=== PATIENT | male | born 1945 | race Caucasian/White ===

== ENCOUNTER 2016-08-22 21:38 | Emergency (ER) | payer MEDICARE, OTHER ==
[2016-08-22] MEDS ORDERED: NORCO, ANEXSIA 5/325MG TABLET (HYDROcodone/ACETAMINOPHEN) As Ordered ONE (23:01)
[2016-08-22] MEDS ORDERED: tiZANidine 4 MG TAB As Ordered ONE (23:02)
[2016-08-22 23:09] LABS: BASO # 0.1 K/mm3 (0.0-0.2); BASO % 1.1 % (0.0-1.0); EOS # 0.3 K/mm3 (0.0-0.50); EOS % 3.6 % (0.0-3.0); LARGE UNSTAINED CELL # 0.1 K/mm3 (0.0-0.4); LARGE UNSTAINED CELL % 1.4 % (0.0-4.0); LYMPH # 0.9 K/mm3 (1.5-4.5); LYMPH % 9.3 % (24.0-44.0); MEAN CORPUSCULAR HGB CONC 32.7 g/dl (32.0-36.5); MEAN CORPUSCULAR VOLUME 85.7 fl (80.0-96.0); MONO # 0.7 K/mm3 (0.0-0.8); MONO % 7.4 % (0.0-5.0); NEUTROPHILS # 6.8 K/mm3 (1.8-7.7); NEUTROPHILS % 77.1 % (36.0-66.0); PLATELET COUNT, AUTOMATED 149 k/mm3 (150-450); RED CELL DISTRIBUTION WIDTH 14.3 % (11.5-14.5); WHITE BLOOD COUNT 8.8 K/mm3 (4.0-10.0)
[2016-08-22 23:32] LABS: ALBUMIN 4.1 GM/DL (3.2-5.2); ALBUMIN/GLOBULIN RATIO 1.24 (1.00-1.93); ALKALINE PHOSPHATASE 107 U/L (45-117); ALT/SGPT 37 U/L (12-78); ANION GAP 7 MEQ/L (8-16); AST/SGOT 26 U/L (15-37); BLOOD UREA NITROGEN 19 MG/DL (7-18); CALCIUM LEVEL 8.6 MG/DL (8.8-10.2); CARBON DIOXIDE LEVEL 26 MEQ/L (21-32); CHLORIDE LEVEL 106 MEQ/L (98-107); CREATININE FOR GFR 1.16 MG/DL (0.70-1.30); GLOMERULAR FILTRATION RATE > 60.0 (>42); GLUCOSE, FASTING 149 MG/DL (83-110); POTASSIUM SERUM 3.9 MEQ/L (3.5-5.1); SODIUM LEVEL 139 MEQ/L (136-145); TOTAL PROTEIN 7.4 GM/DL (6.4-8.2)
--- NOTE | 2016-08-23 00:53 | EDDOCDS ---
Nurse's Notes [facility] Name: Fred Moseley Age: 71 yrs Sex: Male : 1945 Arrival Date: 08/22/2016 Time: 21:38 Bed 17 Private MD: Jaun Jennings Diagnosis: Myositis Presentation: 08/22 21:42 Presenting complaint: EMS states: chronic back problems. Bilat shoulder pain, numbness, ttb tingling today. Adult Sepsis Screening:. Suicide/Homicide risk assessment- the patient denies having any suicidal and/or homicidal ideations and does not present with any other emotional, behavioral or mental health complaints. 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 Transition of care: patient was not received from another setting of care. 21:42 Acuity: KYLE Level 3 ttb 21:42 Method Of Arrival: Ambulance ttb 21:53 Adult Sepsis Screening: The patient does not have new or worsening altered mentation. ttb Patient's respiratory rate is less than 22. Systolic blood pressure is greater than 100. Patient has a qSOFA score of 0- Negative Sepsis Screen. Triage Assessment: 21:55 General: Appears in no apparent distress, comfortable, well nourished, well groomed, ttb Behavior is appropriate for age, cooperative, pleasant. Pain: Location: bilat shoulders, righ knee. Pain currently is 8 out of 10 on a pain scale. 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 Denies blurred vision dizziness, headache Reports numbness. EENT: Reports nasal discharge. Cardiovascular: Heart tones Murmur present Chest pain is denied. Respiratory: No deficits noted. Airway is patent Respiratory effort is even, unlabored, Respiratory pattern is regular, symmetrical, Breath sounds are clear bilaterally. Denies cough, shortness of breath. GI: Denies nausea, vomiting, pain. Derm: Skin is normal. Musculoskeletal: Range of motion limited in bilat shoulders d/t weakness/pain No deformity noted Reports pain in bilat shoulders, neck, mid back, right knee. Injury Description: pt states he was doing yard work recently, no injury, fall a couple weeks ago which he states was unremarkable, and a lot of shopping today. Historical: - Allergies: unknown medication; - Home Meds: 1. Lipitor Oral 2. Lisinopril Oral Unknown once daily (Last dose: 08/21/2016) 3. Toprol XL Unknown Oral Unknown once daily (Last dose: 08/22/2016 08:00) 4. Tylenol #3 Oral Unknown from old rx - med 3 years old... (Last dose: 08/22/2016 18:00) 5. naproxen 500 mg Oral tab every 12 hours (Last dose: 08/22/2016 17:30) - PMHx: GERD; Heart Murmur; Hypertension; cardiac stent; Arthritis; Chronic Back pain; - PSHx: left hip arthroplasty; ankle fusion; Cardiac stents; - Social history: Smoking status: Patient states former smoker of tobacco. Patient uses alcohol only on a social basis. Patient/guardian denies using street drugs, No barriers to communication noted, The patient speaks fluent Egyptian, Speaks appropriately for age. - Family history: Not pertinent. - : The pt / caregiver states he / she is not on anticoagulants. Home medication list is obtained from the patient. - Exposure Risk Screening:: None identified. Screenin:00 Screening information is obtained from the patient. Fall risk: At risk due to gait ttb disturbance, The following interventions are performed due to a positive Fall Risk Screen: Fall Risk is added to Special Handling on the patient Summary Screen. A Fall Risk Bracelet was applied to the patient. Side Rails are placed in the up position. A Call Mckeon is given with instruction to call for help when getting out of bed. Assistance ADL's: requires no assistance with activities of daily living. Abuse/DV Screen: The patient / caregiver reports he/she is: not in a situation that causes fear, pain or injury. Nutritional screening: No deficits noted. Advance Directives: Currently, there is no health care proxy. home support is adequate. Assessment: 22:00 General: see triage assessment.. ttb 23:00 General: Appears uncomfortable, Behavior is cooperative. Pain: Location: back, mcp bilateral shoulders Pain currently is 8 out of 10 on a pain scale. Neurological: No deficits noted. Respiratory: Airway is patent Respiratory effort is even, unlabored. Derm: Skin is pink, warm & dry. 08/23 00:01 General: Appears uncomfortable, Behavior is cooperative. Pain: Pain currently is 6 out mcp of 10 on a pain scale. Neurological: No deficits noted. Respiratory: Airway is patent Respiratory effort is even, unlabored. Derm: Skin is pink, warm & dry. Vital Signs: 08/22 21:47 BP 181 / 92; Pulse 90; Resp 22; Temp 98.8(O); Pulse Ox 92% on R/A; Weight 140.61 kg kb5 (R); Height 5 ft. 8 in. (172.72 cm); Pain 8/10; 08/23 00:16 BP 135 / 76; Pulse 77; Resp 18; Pulse Ox 95% on R/A; Pain 6/10; mcp 00:16 Pain 6/10; mcp 00:17 Pain 6/10; mcp 08/22 21:47 Body Mass Index 47.13 (140.61 kg, 172.72 cm) kb5 Vitals: 08/22 21:55 Log In Time N/A - ambulance arrival. ttb ED Course: 21:39 Patient visited by Juana Ware, Distributed Generation Project Manager. ml3 21:39 Jaun Jennings is Private Physician. ml3 21:39 Patient moved to Waiting ml3 21:39 Patient moved to 17 ml3 21:43 Patient visited by Carlene Bowman RN. ttb 21:43 Triage Initiated ttb 21:47 Patient visited by Chay Marvin PCA. kb5 21:53 [facility]legas [facility] le 21:56 Patient visited by Sonia Villegas FNP. le 21:56 Patient visited by Sonia Villegas FNP. le 22:00 Patient visited by Carlene Bowman RN. ttb 22:00 The patient / caregiver is instructed regarding the plan of care and ED course. Patient ttb has correct armband on for positive identification. Placed in gown. Call light in reach. 23:01 Creatine Phosphokinase Sent. cln 23:01 Complete Comphrensive Metabolic Sent. cln 23:01 CBC with Diff Sent. cln 23:01 Labs drawn. (by ED staff). cln 23:02 Patient visited by Nelida Ayoub PCA. cln 08/23 00:17 Patient visited by Veena Wood RN. mcp 00:21 Jaun Jennings is Referral Physician. le 00:50 [facility] Payment Agreement was scanned into [employer] and attached to record. [facility] 00:51 No IV's were initiated during this patient's visit. No procedures done that require mcp assistance. Administered Medications: 08/22 23:09 Drug: HYDROcodone-acetaminophen 1 tabs [hydrocodone 5 mg-acetaminophen 325 mg tablet (1 mcp tabs)] Route: PO; 08/23 00:16 Follow up: Pain 6/10 Adult; Response: Pain is decreased [facility] 08/22 23:09 Drug: tiZANidine 4 mg [tizanidine 4 mg tablet (1 tabs)] Route: PO; [facility] 08/23 00:17 Follow up: Pain 6/10 Adult; Response: Pain is decreased [facility] Order Results: Lab Order: CBC with Diff; SPEC'M 08/22/16 23:00 Test: WHITE BLOOD COUNT; Value: 8.8; Range: 4.0-10.0; Units: K/mm3; Status: F Test: RED BLOOD COUNT; Value: 5.13; Range: 4.30-6.10; Units: M/mm3; Status: F Test: HEMOGLOBIN; Value: 14.4; Range: 14.0-18.0; Units: g/dl; Status: F Test: HEMATOCRIT; Value: 44.0; Range: 42.0-52.0; Units: %; Status: F Test: MEAN CORPUSCULAR VOLUME; Value: 85.7; Range: 80.0-96.0; Units: fl; Status: F Test: MEAN CORPUSCULAR HEMOGLOBIN; Value: 28.0; Range: 27.0-33.0; Units: pg; Status: F Test: MEAN CORPUSCULAR HGB CONC; Value: 32.7; Range: 32.0-36.5; Units: g/dl; Status: F Test: RED CELL DISTRIBUTION WIDTH; Value: 14.3; Range: 11.5-14.5; Units: %; Status: F Test: PLATELET COUNT, AUTOMATED; Value: 149; Range: 150-450; Abnormal: Below low normal; Units: k/mm3; Status: F Test: NEUTROPHILS %; Value: 77.1; Range: 36.0-66.0; Abnormal: Above high normal; Units: %; Status: F Test: LYMPH %; Value: 9.3; Range: 24.0-44.0; Abnormal: Below low normal; Units: %; Status: F Test: MONO %; Value: 7.4; Range: 0.0-5.0; Abnormal: Above high normal; Units: %; Status: F Test: EOS %; Value: 3.6; Range: 0.0-3.0; Abnormal: Above high normal; Units: %; Status: F Test: BASO %; Value: 1.1; Range: 0.0-1.0; Abnormal: Above high normal; Units: %; Status: F Test: LARGE UNSTAINED CELL %; Value: 1.4; Range: 0.0-4.0; Units: %; Status: F Test: NEUTROPHILS #; Value: 6.8; Range: 1.8-7.7; Units: K/mm3; Status: F Test: LYMPH #; Value: 0.9; Range: 1.5-4.5; Abnormal: Below low normal; Units: K/mm3; Status: F Test: MONO #; Value: 0.7; Range: 0.0-0.8; Units: K/mm3; Status: F Test: EOS #; Value: 0.3; Range: 0.0-0.50; Units: K/mm3; Status: F Test: BASO #; Value: 0.1; Range: 0.0-0.2; Units: K/mm3; Status: F Test: LARGE UNSTAINED CELL #; Value: 0.1; Range: 0.0-0.4; Units: K/mm3; Status: F Lab Order: Complete Comphrensive Metabolic; SPEC'M 08/22/16 23:00 Test: GLUCOSE, FASTING; Value: 149; Range: 83-110; Abnormal: Above high normal; Units: MG/DL; Status: F Test: BLOOD UREA NITROGEN; Value: 19; Range: 7-18; Abnormal: Above high normal; Units: MG/DL; Status: F Test: CREATININE FOR GFR; Value: 1.16; Range: 0.70-1.30; Units: MG/DL; Status: F Test: GLOMERULAR FILTRATION RATE; Value: > 60.0; Range: >42; Status: F Test: SODIUM LEVEL; Value: 139; Range: 136-145; Units: MEQ/L; Status: F Test: POTASSIUM SERUM; Value: 3.9; Range: 3.5-5.1; Units: MEQ/L; Status: F Test: CHLORIDE LEVEL; Value: 106; Range: 98-107; Units: MEQ/L; Status: F Test: CARBON DIOXIDE LEVEL; Value: 26; Range: 21-32; Units: MEQ/L; Status: F Test: ANION GAP; Value: 7; Range: 8-16; Abnormal: Below low normal; Units: MEQ/L; Status: F Test: CALCIUM LEVEL; Value: 8.6; Range: 8.8-10.2; Abnormal: Below low normal; Units: MG/DL; Status: F Test: AST/SGOT; Value: 26; Range: 15-37; Units: U/L; Status: F Test: ALT/SGPT; Value: 37; Range: 12-78; Units: U/L; Status: F Test: ALKALINE PHOSPHATASE; Value: 107; Range: 45-117; Units: U/L; Status: F Test: BILIRUBIN,TOTAL; Value: 1.0; Range: 0.2-1.0; Units: MG/DL; Status: F Test: TOTAL PROTEIN; Value: 7.4; Range: 6.4-8.2; Units: GM/DL; Status: F Test: ALBUMIN; Value: 4.1; Range: 3.2-5.2; Units: GM/DL; Status: F Test: ALBUMIN/GLOBULIN RATIO; Value: 1.24; Range: 1.00-1.93; Status: F Test Note: ; Units are mL/min/1.73 m2 Chronic Kidney Disease Staging per NKF: Stage I & II GFR >=60 Normal to Mildly Decreased Stage III GFR 30-59 Moderately Decreased Stage IV GFR 15-29 Severely Decreased Stage V GFR <15 Very Little GFR Left ESRD GFR <15 on DIRECTOR OF CURRICULUM AND INSTRUCTION Lab Order: Creatine Phosphokinase; SPEC'M 08/22/16 23:00 Test: CPK CREATINE PHOSPHOKINASE; Value: 507; Range: 39-308; Abnormal: Above high normal; Units: U/L; Status: F Outcome: 00:21 Discharge ordered by ProviderTian roberson 00:51 Discharge Assessment: patient administered narcotics - yes. Pt provided with safe mcp discharge. The following High Risk Discharge criteria are identified: None. Discharged to home ambulatory, with significant other. Condition: stable. Discharge instructions given to patient, Instructed on discharge instructions, follow up and referral plans. medication usage, no driving heavy equipment, no drinking with medication, Demonstrated understanding of instructions, medications, Pt was receptive of discharge instructions/ teaching. Prescriptions given X 1. No special radiology studies were completed. Property sent home with patient. 00:52 Patient left the ED. [facility] Signatures: Veena Wood, RN RN Juana Madden, Distributed Generation Project Manager Unit ml3 Chay Marvin, SOCIAL WORK MSW SOCIAL WORK MSW kb5 Sonia Villegas FNP FNP le Conner, Teresa, RN RN Taylor Garcia Crystal, SOCIAL WORK MSW SOCIAL WORK MSW cln JOSE
--- NOTE | 2016-08-23 00:53 | EDDOCDS ---
Physician Documentation [facility] Name: Fred Moseley Age: 71 yrs Sex: Male : 1945 Arrival Date: 08/22/2016 Time: 21:38 Bed 17 Private MD: Jaun Jennings Disposition: 08/23/16 00:21 Discharged to Home/Self Care. Impression: Myositis. - Condition is Stable. - Discharge Instructions: Muscle Pain, Adult. - Prescriptions for Valium 5 mg Oral Tablet - take 1 tablet by ORAL route 2 times per day As needed MDD: 2 tabs; 10 tablet. - Medication Reconciliation, Local Pharmacy Hours form. - Follow up: Jaun Jennings; When: Call to arrange an appointment; Reason: Recheck today's complaints, Continuance of care. - Problem is new. - Symptoms have improved. - Notes: Keep hydrated No strenuous activities until pain has resolved REturn to the ED for any furhter concerns Historical: - Allergies: unknown medication; - Home Meds: 1. Lipitor Oral 2. Lisinopril Oral Unknown once daily (Last dose: 08/21/2016) 3. Toprol XL Unknown Oral Unknown once daily (Last dose: 08/22/2016 08:00) 4. Tylenol #3 Oral Unknown from old rx - med 3 years old... (Last dose: 08/22/2016 18:00) 5. naproxen 500 mg Oral tab every 12 hours (Last dose: 08/22/2016 17:30) - PMHx: GERD; Heart Murmur; Hypertension; cardiac stent; Arthritis; Chronic Back pain; - PSHx: left hip arthroplasty; ankle fusion; Cardiac stents; - Social history: Smoking status: Patient states former smoker of tobacco. Patient uses alcohol only on a social basis. Patient/guardian denies using street drugs, No barriers to communication noted, The patient speaks fluent Japanese, Speaks appropriately for age. - Family history: Not pertinent. - : The pt / caregiver states he / she is not on anticoagulants. Home medication list is obtained from the patient. - Exposure Risk Screening:: None identified. Vital Signs: 08/22 21:47 BP 181 / 92; Pulse 90; Resp 22; Temp 98.8(O); Pulse Ox 92% on R/A; Weight 140.61 kg / kb5 309.99 lbs (R); Height 5 ft. 8 in. (172.72 cm); Pain 8/10; 08/23 00:16 BP 135 / 76; Pulse 77; Resp 18; Pulse Ox 95% on R/A; Pain 6/10; mcp 00:16 Pain 6/10; mcp 00:17 Pain 6/10; mcp 08/22 21:47 Body Mass Index 47.13 (140.61 kg, 172.72 cm) kb5 MDM: 08/22 22:30 HYDROcodone-acetaminophen 5 mg-325 mg 1 tabs PO once ordered. le 22:30 tiZANidine 4 mg PO once ordered. le 22:32 CBC with Diff Ordered. EDMS 22:32 Complete Comphrensive Metabolic Ordered. EDMS 22:32 Creatine Phosphokinase Ordered. EDMS 23:33 CBC with Diff Reviewed. le 23:41 Financial registration complete. [facility] 08/23 00:14 Complete Comphrensive Metabolic Reviewed. le 00:14 Creatine Phosphokinase Reviewed. le 00:50 [facility] Payment Agreement was scanned into [employer] and attached to record. [facility] Administered Medications: 08/22 23:09 Drug: HYDROcodone-acetaminophen 1 tabs [hydrocodone 5 mg-acetaminophen 325 mg tablet (1 mcp tabs)] Route: PO; 08/23 00:16 Follow up: Pain 6/10 Adult; Response: Pain is decreased [facility] 08/22 23:09 Drug: tiZANidine 4 mg [tizanidine 4 mg tablet (1 tabs)] Route: PO; [facility] 08/23 00:17 Follow up: Pain 6/10 Adult; Response: Pain is decreased [facility] Signatures: Dispatcher [employer] EDVeena Villalba RN RN Sonia Prather, SEMICONDUCTOR WAFERS ETCHER STRIPPER Carlene Baker RN RN Taylor Garcia [facility] The chart was reviewed and I authenticate all verbal orders and agree with the evaluation and treatment provided.Attachments: 00:50 [facility] Payment Agreement [facility] MTDD
--- NOTE | 2016-08-25 01:53 | EDDOCDS ---
Physician Documentation [facility] Name: Fred Moseley Age: 71 yrs Sex: Male : 1945 Arrival Date: 08/22/2016 Time: 21:38 Bed 17 Private MD: Jaun Jennings Disposition: 08/23/16 00:21 Discharged to Home/Self Care. Impression: Myositis. - Condition is Stable. - Discharge Instructions: Muscle Pain, Adult. - Prescriptions for Valium 5 mg Oral Tablet - take 1 tablet by ORAL route 2 times per day As needed MDD: 2 tabs; 10 tablet. - Medication Reconciliation, Local Pharmacy Hours form. - Follow up: Jaun Jennings; When: Call to arrange an appointment; Reason: Recheck today's complaints, Continuance of care. - Problem is new. - Symptoms have improved. - Notes: Keep hydrated No strenuous activities until pain has resolved REturn to the ED for any furhter concerns Historical: - Allergies: unknown medication; - Home Meds: 1. Lipitor Oral 2. Lisinopril Oral Unknown once daily (Last dose: 08/21/2016) 3. Toprol XL Unknown Oral Unknown once daily (Last dose: 08/22/2016 08:00) 4. Tylenol #3 Oral Unknown from old rx - med 3 years old... (Last dose: 08/22/2016 18:00) 5. naproxen 500 mg Oral tab every 12 hours (Last dose: 08/22/2016 17:30) - PMHx: GERD; Heart Murmur; Hypertension; cardiac stent; Arthritis; Chronic Back pain; - PSHx: left hip arthroplasty; ankle fusion; Cardiac stents; - Social history: Smoking status: Patient states former smoker of tobacco. Patient uses alcohol only on a social basis. Patient/guardian denies using street drugs, No barriers to communication noted, The patient speaks fluent Niuean, Speaks appropriately for age. - Family history: Not pertinent. - : The pt / caregiver states he / she is not on anticoagulants. Home medication list is obtained from the patient. - Exposure Risk Screening:: None identified. Vital Signs: 08/22 21:47 BP 181 / 92; Pulse 90; Resp 22; Temp 98.8(O); Pulse Ox 92% on R/A; Weight 140.61 kg / kb5 309.99 lbs (R); Height 5 ft. 8 in. (172.72 cm); Pain 8/10; 08/23 00:16 BP 135 / 76; Pulse 77; Resp 18; Pulse Ox 95% on R/A; Pain 6/10; mcp 00:16 Pain 6/10; mcp 00:17 Pain 6/10; mcp 08/22 21:47 Body Mass Index 47.13 (140.61 kg, 172.72 cm) kb5 MDM: 08/22 22:30 HYDROcodone-acetaminophen 5 mg-325 mg 1 tabs PO once ordered. le 22:30 tiZANidine 4 mg PO once ordered. le 22:32 CBC with Diff Ordered. EDMS 22:32 Complete Comphrensive Metabolic Ordered. EDMS 22:32 Creatine Phosphokinase Ordered. EDMS 23:33 CBC with Diff Reviewed. le 23:41 Financial registration complete. [facility] 08/23 00:14 Complete Comphrensive Metabolic Reviewed. le 00:14 Creatine Phosphokinase Reviewed. le 00:50 [facility] Payment Agreement was scanned into [employer] and attached to record. [facility] : T-Sheet-- Draft Copy was scanned into [employer] and attached to record. gb Administered Medications: 08/22 23:09 Drug: HYDROcodone-acetaminophen 1 tabs [hydrocodone 5 mg-acetaminophen 325 mg tablet (1 mcp tabs)] Route: PO; 08/23 00:16 Follow up: Pain 6/10 Adult; Response: Pain is decreased [facility] 08/22 23:09 Drug: tiZANidine 4 mg [tizanidine 4 mg tablet (1 tabs)] Route: PO; [facility] 08/23 00:17 Follow up: Pain 6/10 Adult; Response: Pain is decreased [facility] Signatures: Dispatcher [employer] EDVeena Villalba RN RN [facility] Melissa Sterling, Reg Reg Sonia Cabello, Carlene William RN RN ttb Hook, Sandra [facility] The chart was reviewed and I authenticate all verbal orders and agree with the evaluation and treatment provided.Attachments: 00:50 [facility] Payment Agreement [facility] 11:07 T-Sheet-- Draft Copy Chart Complete MTDD
--- NOTE | 2016-08-25 01:53 | EDDOCDS ---
Physician Documentation [facility] Name: Fred Moseley Age: 71 yrs Sex: Male : 1945 Arrival Date: 08/22/2016 Time: 21:38 Bed 17 Private MD: Jaun Jennings Disposition: 08/23/16 00:21 Discharged to Home/Self Care. Impression: Myositis. - Condition is Stable. - Discharge Instructions: Muscle Pain, Adult. - Prescriptions for Valium 5 mg Oral Tablet - take 1 tablet by ORAL route 2 times per day As needed MDD: 2 tabs; 10 tablet. - Medication Reconciliation, Local Pharmacy Hours form. - Follow up: Jaun Jennings; When: Call to arrange an appointment; Reason: Recheck today's complaints, Continuance of care. - Problem is new. - Symptoms have improved. - Notes: Keep hydrated No strenuous activities until pain has resolved REturn to the ED for any furhter concerns Historical: - Allergies: unknown medication; - Home Meds: 1. Lipitor Oral 2. Lisinopril Oral Unknown once daily (Last dose: 08/21/2016) 3. Toprol XL Unknown Oral Unknown once daily (Last dose: 08/22/2016 08:00) 4. Tylenol #3 Oral Unknown from old rx - med 3 years old... (Last dose: 08/22/2016 18:00) 5. naproxen 500 mg Oral tab every 12 hours (Last dose: 08/22/2016 17:30) - PMHx: GERD; Heart Murmur; Hypertension; cardiac stent; Arthritis; Chronic Back pain; - PSHx: left hip arthroplasty; ankle fusion; Cardiac stents; - Social history: Smoking status: Patient states former smoker of tobacco. Patient uses alcohol only on a social basis. Patient/guardian denies using street drugs, No barriers to communication noted, The patient speaks fluent Qatari, Speaks appropriately for age. - Family history: Not pertinent. - : The pt / caregiver states he / she is not on anticoagulants. Home medication list is obtained from the patient. - Exposure Risk Screening:: None identified. Vital Signs: 08/22 21:47 BP 181 / 92; Pulse 90; Resp 22; Temp 98.8(O); Pulse Ox 92% on R/A; Weight 140.61 kg / kb5 309.99 lbs (R); Height 5 ft. 8 in. (172.72 cm); Pain 8/10; 08/23 00:16 BP 135 / 76; Pulse 77; Resp 18; Pulse Ox 95% on R/A; Pain 6/10; mcp 00:16 Pain 6/10; mcp 00:17 Pain 6/10; mcp 08/22 21:47 Body Mass Index 47.13 (140.61 kg, 172.72 cm) kb5 MDM: 08/22 22:30 HYDROcodone-acetaminophen 5 mg-325 mg 1 tabs PO once ordered. le 22:30 tiZANidine 4 mg PO once ordered. le 22:32 CBC with Diff Ordered. EDMS 22:32 Complete Comphrensive Metabolic Ordered. EDMS 22:32 Creatine Phosphokinase Ordered. EDMS 23:33 CBC with Diff Reviewed. le 23:41 Financial registration complete. [facility] 08/23 00:14 Complete Comphrensive Metabolic Reviewed. le 00:14 Creatine Phosphokinase Reviewed. le 00:50 [facility] Payment Agreement was scanned into [employer] and attached to record. [facility] : T-Sheet-- Draft Copy was scanned into [employer] and attached to record. gb Administered Medications: 08/22 23:09 Drug: HYDROcodone-acetaminophen 1 tabs [hydrocodone 5 mg-acetaminophen 325 mg tablet (1 mcp tabs)] Route: PO; 08/23 00:16 Follow up: Pain 6/10 Adult; Response: Pain is decreased [facility] 08/22 23:09 Drug: tiZANidine 4 mg [tizanidine 4 mg tablet (1 tabs)] Route: PO; [facility] 08/23 00:17 Follow up: Pain 6/10 Adult; Response: Pain is decreased [facility] Signatures: Dispatcher [employer] EDVeena Villalba RN RN [facility] Melissa Sterling, Reg Reg Sonia Cabello, Carlene William RN RN ttb Hook, Sandra [facility] The chart was reviewed and I authenticate all verbal orders and agree with the evaluation and treatment provided.Attachments: 00:50 [facility] Payment Agreement [facility] 11:07 T-Sheet-- Draft Copy Chart Complete MTDD
--- NOTE | 2016-08-25 01:53 | EDDOCDS ---
Nurse's Notes [facility] Name: Fred Moseley Age: 71 yrs Sex: Male : 1945 Arrival Date: 08/22/2016 Time: 21:38 Bed 17 Private MD: Jaun Jennings Diagnosis: Myositis Presentation: 08/22 21:42 Presenting complaint: EMS states: chronic back problems. Bilat shoulder pain, numbness, ttb tingling today. Adult Sepsis Screening:. Suicide/Homicide risk assessment- the patient denies having any suicidal and/or homicidal ideations and does not present with any other emotional, behavioral or mental health complaints. Status: Patient is not a director learning services or dependent. Transition of care: patient was not received from another setting of care. 21:42 Acuity: KYLE Level 3 ttb 21:42 Method Of Arrival: Ambulance ttb 21:53 Adult Sepsis Screening: The patient does not have new or worsening altered mentation. ttb Patient's respiratory rate is less than 22. Systolic blood pressure is greater than 100. Patient has a qSOFA score of 0- Negative Sepsis Screen. Triage Assessment: 21:55 General: Appears in no apparent distress, comfortable, well nourished, well groomed, ttb Behavior is appropriate for age, cooperative, pleasant. Pain: Location: bilat shoulders, righ knee. Pain currently is 8 out of 10 on a pain scale. Neurological: Level of Consciousness is awake, alert, Oriented to person, place, time, Coal Cutter are equal bilaterally Speech is normal, Facial symmetry appears normal, reports numbness/tingling to arms and bilat fingers, especially when raising them. Denies blurred vision dizziness, headache Reports numbness. EENT: Reports nasal discharge. Cardiovascular: Heart tones Murmur present Chest pain is denied. Respiratory: No deficits noted. Airway is patent Respiratory effort is even, unlabored, Respiratory pattern is regular, symmetrical, Breath sounds are clear bilaterally. Denies cough, shortness of breath. GI: Denies nausea, vomiting, pain. Derm: Skin is normal. Musculoskeletal: Range of motion limited in bilat shoulders d/t weakness/pain No deformity noted Reports pain in bilat shoulders, neck, mid back, right knee. Injury Description: pt states he was doing yard work recently, no injury, fall a couple weeks ago which he states was unremarkable, and a lot of shopping today. Historical: - Allergies: unknown medication; - Home Meds: 1. Lipitor Oral 2. Lisinopril Oral Unknown once daily (Last dose: 08/21/2016) 3. Toprol XL Unknown Oral Unknown once daily (Last dose: 08/22/2016 08:00) 4. Tylenol #3 Oral Unknown from old rx - med 3 years old... (Last dose: 08/22/2016 18:00) 5. naproxen 500 mg Oral tab every 12 hours (Last dose: 08/22/2016 17:30) - PMHx: GERD; Heart Murmur; Hypertension; cardiac stent; Arthritis; Chronic Back pain; - PSHx: left hip arthroplasty; ankle fusion; Cardiac stents; - Social history: Smoking status: Patient states former smoker of tobacco. Patient uses alcohol only on a social basis. Patient/guardian denies using street drugs, No barriers to communication noted, The patient speaks fluent [place] Island[place], Speaks appropriately for age. - Family history: Not pertinent. - : The pt / caregiver states he / she is not on anticoagulants. Home medication list is obtained from the patient. - Exposure Risk Screening:: None identified. Screenin:00 Screening information is obtained from the patient. Fall risk: At risk due to gait ttb disturbance, The following interventions are performed due to a positive Fall Risk Screen: Fall Risk is added to Special Handling on the patient Summary Screen. A Fall Risk Bracelet was applied to the patient. Side Rails are placed in the up position. A Call Mckeon is given with instruction to call for help when getting out of bed. Assistance ADL's: requires no assistance with activities of daily living. Abuse/DV Screen: The patient / caregiver reports he/she is: not in a situation that causes fear, pain or injury. Nutritional screening: No deficits noted. Advance Directives: Currently, there is no health care proxy. home support is adequate. Assessment: 22:00 General: see triage assessment.. ttb 23:00 General: Appears uncomfortable, Behavior is cooperative. Pain: Location: back, mcp bilateral shoulders Pain currently is 8 out of 10 on a pain scale. Neurological: No deficits noted. Respiratory: Airway is patent Respiratory effort is even, unlabored. Derm: Skin is pink, warm & dry. 08/23 00:01 General: Appears uncomfortable, Behavior is cooperative. Pain: Pain currently is 6 out mcp of 10 on a pain scale. Neurological: No deficits noted. Respiratory: Airway is patent Respiratory effort is even, unlabored. Derm: Skin is pink, warm & dry. Vital Signs: 08/22 21:47 BP 181 / 92; Pulse 90; Resp 22; Temp 98.8(O); Pulse Ox 92% on R/A; Weight 140.61 kg kb5 (R); Height 5 ft. 8 in. (172.72 cm); Pain 8/10; 08/23 00:16 BP 135 / 76; Pulse 77; Resp 18; Pulse Ox 95% on R/A; Pain 6/10; mcp 00:16 Pain 6/10; mcp 00:17 Pain 6/10; mcp 08/22 21:47 Body Mass Index 47.13 (140.61 kg, 172.72 cm) kb5 Vitals: 08/22 21:55 Log In Time N/A - ambulance arrival. ttb ED Course: 21:39 Patient visited by Juana Ware, Geriatric Nurse. ml3 21:39 Jaun Jennings is Private Physician. ml3 21:39 Patient moved to Waiting ml3 21:39 Patient moved to 17 ml3 21:43 Patient visited by Carlene Bowman RN. ttb 21:43 Triage Initiated ttb 21:47 Patient visited by Chay Marvin PCA. kb5 21:53 [facility] le 21:56 Patient visited by Sonia Villegas FNP. le 21:56 Patient visited by Sonia Villegas FNP. le 22:00 Patient visited by Carlene Bowman RN. ttb 22:00 The patient / caregiver is instructed regarding the plan of care and ED course. Patient ttb has correct armband on for positive identification. Placed in gown. Call light in reach. 23:01 Creatine Phosphokinase Sent. cln 23:01 Complete Comphrensive Metabolic Sent. cln 23:01 CBC with Diff Sent. cln 23:01 Labs drawn. (by ED staff). cln 23:02 Patient visited by Nelida Ayoub PCA. cln 08/23 00:17 Patient visited by Veena Wood RN. mcp 00:21 Jaun Jennings is Referral Physician. le 00:50 [facility] Payment Agreement was scanned into [employer] and attached to record. [facility] 00:51 No IV's were initiated during this patient's visit. No procedures done that require mcp assistance. 11:07 T-Sheet-- Draft Copy was scanned into [employer] and attached to record. gb Administered Medications: 08/22 23:09 Drug: HYDROcodone-acetaminophen 1 tabs [hydrocodone 5 mg-acetaminophen 325 mg tablet (1 mcp tabs)] Route: PO; 08/23 00:16 Follow up: Pain 6/10 Adult; Response: Pain is decreased [facility] 08/22 23:09 Drug: tiZANidine 4 mg [tizanidine 4 mg tablet (1 tabs)] Route: PO; mcp 08/23 00:17 Follow up: Pain 6/10 Adult; Response: Pain is decreased mcp Order Results: Lab Order: CBC with Diff; SPEC'M 08/22/16 23:00 Test: WHITE BLOOD COUNT; Value: 8.8; Range: 4.0-10.0; Units: K/mm3; Status: F Test: RED BLOOD COUNT; Value: 5.13; Range: 4.30-6.10; Units: M/mm3; Status: F Test: HEMOGLOBIN; Value: 14.4; Range: 14.0-18.0; Units: g/dl; Status: F Test: HEMATOCRIT; Value: 44.0; Range: 42.0-52.0; Units: %; Status: F Test: MEAN CORPUSCULAR VOLUME; Value: 85.7; Range: 80.0-96.0; Units: fl; Status: F Test: MEAN CORPUSCULAR HEMOGLOBIN; Value: 28.0; Range: 27.0-33.0; Units: pg; Status: F Test: MEAN CORPUSCULAR HGB CONC; Value: 32.7; Range: 32.0-36.5; Units: g/dl; Status: F Test: RED CELL DISTRIBUTION WIDTH; Value: 14.3; Range: 11.5-14.5; Units: %; Status: F Test: PLATELET COUNT, AUTOMATED; Value: 149; Range: 150-450; Abnormal: Below low normal; Units: k/mm3; Status: F Test: NEUTROPHILS %; Value: 77.1; Range: 36.0-66.0; Abnormal: Above high normal; Units: %; Status: F Test: LYMPH %; Value: 9.3; Range: 24.0-44.0; Abnormal: Below low normal; Units: %; Status: F Test: MONO %; Value: 7.4; Range: 0.0-5.0; Abnormal: Above high normal; Units: %; Status: F Test: EOS %; Value: 3.6; Range: 0.0-3.0; Abnormal: Above high normal; Units: %; Status: F Test: BASO %; Value: 1.1; Range: 0.0-1.0; Abnormal: Above high normal; Units: %; Status: F Test: LARGE UNSTAINED CELL %; Value: 1.4; Range: 0.0-4.0; Units: %; Status: F Test: NEUTROPHILS #; Value: 6.8; Range: 1.8-7.7; Units: K/mm3; Status: F Test: LYMPH #; Value: 0.9; Range: 1.5-4.5; Abnormal: Below low normal; Units: K/mm3; Status: F Test: MONO #; Value: 0.7; Range: 0.0-0.8; Units: K/mm3; Status: F Test: EOS #; Value: 0.3; Range: 0.0-0.50; Units: K/mm3; Status: F Test: BASO #; Value: 0.1; Range: 0.0-0.2; Units: K/mm3; Status: F Test: LARGE UNSTAINED CELL #; Value: 0.1; Range: 0.0-0.4; Units: K/mm3; Status: F Lab Order: Complete Comphrensive Metabolic; SPEC'M 08/22/16 23:00 Test: GLUCOSE, FASTING; Value: 149; Range: 83-110; Abnormal: Above high normal; Units: MG/DL; Status: F Test: BLOOD UREA NITROGEN; Value: 19; Range: 7-18; Abnormal: Above high normal; Units: MG/DL; Status: F Test: CREATININE FOR GFR; Value: 1.16; Range: 0.70-1.30; Units: MG/DL; Status: F Test: GLOMERULAR FILTRATION RATE; Value: > 60.0; Range: >42; Status: F Test: SODIUM LEVEL; Value: 139; Range: 136-145; Units: MEQ/L; Status: F Test: POTASSIUM SERUM; Value: 3.9; Range: 3.5-5.1; Units: MEQ/L; Status: F Test: CHLORIDE LEVEL; Value: 106; Range: 98-107; Units: MEQ/L; Status: F Test: CARBON DIOXIDE LEVEL; Value: 26; Range: 21-32; Units: MEQ/L; Status: F Test: ANION GAP; Value: 7; Range: 8-16; Abnormal: Below low normal; Units: MEQ/L; Status: F Test: CALCIUM LEVEL; Value: 8.6; Range: 8.8-10.2; Abnormal: Below low normal; Units: MG/DL; Status: F Test: AST/SGOT; Value: 26; Range: 15-37; Units: U/L; Status: F Test: ALT/SGPT; Value: 37; Range: 12-78; Units: U/L; Status: F Test: ALKALINE PHOSPHATASE; Value: 107; Range: 45-117; Units: U/L; Status: F Test: BILIRUBIN,TOTAL; Value: 1.0; Range: 0.2-1.0; Units: MG/DL; Status: F Test: TOTAL PROTEIN; Value: 7.4; Range: 6.4-8.2; Units: GM/DL; Status: F Test: ALBUMIN; Value: 4.1; Range: 3.2-5.2; Units: GM/DL; Status: F Test: ALBUMIN/GLOBULIN RATIO; Value: 1.24; Range: 1.00-1.93; Status: F Test Note: ; Units are mL/min/1.73 m2 Chronic Kidney Disease Staging per NKF: Stage I & II GFR >=60 Normal to Mildly Decreased Stage III GFR 30-59 Moderately Decreased Stage IV GFR 15-29 Severely Decreased Stage V GFR <15 Very Little GFR Left ESRD GFR <15 on STOP ATTACHER Lab Order: Creatine Phosphokinase; SPEC'M 08/22/16 23:00 Test: CPK CREATINE PHOSPHOKINASE; Value: 507; Range: 39-308; Abnormal: Above high normal; Units: U/L; Status: F Outcome: 00:21 Discharge ordered by Provider. da 00:51 Discharge Assessment: patient administered narcotics - yes. Pt provided with safe mcp discharge. The following High Risk Discharge criteria are identified: None. Discharged to home ambulatory, with significant other. Condition: stable. Discharge instructions given to patient, Instructed on discharge instructions, follow up and referral plans. medication usage, no driving heavy equipment, no drinking with medication, Demonstrated understanding of instructions, medications, Pt was receptive of discharge instructions/ teaching. Prescriptions given X 1. No special radiology studies were completed. Property sent home with patient. 00:52 Patient left the ED. [facility] Signatures: Veena Wood, Melissa Isidro RN, mcp, Juana Murphy, Geriatric Nurse Unit ml3 Chay Marvin, FORM CARPENTER FORM CARPENTER kb5 Sonia Villegas, VOLUNTEER SERVICES COORDINATOR VOLUNTEER SERVICES COORDINATORCarlene Cueva RN RN ttb Hook, Sandra slh Nichols, Crystal, FORM CARPENTER FORM CARPENTER cln Chart Complete JOSE
== END 2016-08-23 00:52 | disposition home or self-care (01) ==
LOC: M ED 21:38
DX: M60.9 Myositis, unspecified (principal); M54.9 Dorsalgia, unspecified; I10 Essential (primary) hypertension; K21.9 Gastro-esophageal reflux disease without esophagitis; M19.90 Unspecified osteoarthritis, unspecified site; R01.1 Cardiac murmur, unspecified; Z87.891 Personal history of nicotine dependence; Z95.5 Presence of coronary angioplasty implant and graft; Z79.899 Other long term (current) drug therapy; Z79.1 Long term (current) use of non-steroidal anti-inflammatories (NSAID); Z88.8 Allergy status to other drugs, medicaments and biological substances

== ENCOUNTER 2016-08-23 16:00 | Emergency (ER) | payer MEDICARE, OTHER ==
[2016-08-23 17:21] LABS: BASO % 0.4 % (0.0-1.0); EOS # 0.3 K/mm3 (0.0-0.50); EOS % 3.9 % (0.0-3.0); LARGE UNSTAINED CELL # 0.2 K/mm3 (0.0-0.4); MEAN CORPUSCULAR HEMOGLOBIN 28.9 pg (27.0-33.0); MEAN CORPUSCULAR VOLUME 84.8 fl (80.0-96.0); MONO # 0.5 K/mm3 (0.0-0.8); MONO % 6.9 % (0.0-5.0); NEUTROPHILS # 5.7 K/mm3 (1.8-7.7); NEUTROPHILS % 73.8 % (36.0-66.0); PLATELET COUNT, AUTOMATED 161 k/mm3 (150-450); RED CELL DISTRIBUTION WIDTH 13.5 % (11.5-14.5); WHITE BLOOD COUNT 7.7 K/mm3 (4.0-10.0)
[2016-08-23 17:29] LABS: ANION GAP 8 MEQ/L (8-16); BLOOD UREA NITROGEN 13 MG/DL (7-18); CARBON DIOXIDE LEVEL 27 MEQ/L (21-32); CHLORIDE LEVEL 105 MEQ/L (98-107); CREATININE FOR GFR 0.91 MG/DL (0.70-1.30); GLOMERULAR FILTRATION RATE > 60.0 (>42); GLUCOSE, FASTING 138 MG/DL (83-110); POTASSIUM SERUM 3.9 MEQ/L (3.5-5.1); SODIUM LEVEL 140 MEQ/L (136-145)
[2016-08-23] MEDS ORDERED: ISOVUE-370 76% 100ML VIAL (Q9967) As Ordered ONE (18:26)
--- NOTE | 2016-08-23 19:50 | REPUSA ---
CLINICAL HISTORY: Abdominal pain. TECHNIQUE: Multiple axial, sagittal and coronal CT images were obtained through the abdomen and pelvi s after administration of intravenous contrast material. COMMENTS: The liver is of uniform attenuation without mass or defect. There is no intra or extrahepatic biliary ductal dilatation. The spleen is normal. The gallbladder is within normal limits. The pancreas is of normal contour and attenuation characteristics. There is no evidence of adrenal mass. Both kidneys demonstrate prompt and equal nephrograms. The kidneys are normal in size, shape and conf iguration. There is no evidence of renal or ureteral mass. No renal or ureteral calculi are identifie d. There is no hydroureter or hydronephrosis. No evidence for appendicitis. There is no bowel wall thickening. Sigmoid diverticulosis seen withou t evidence of diverticulitis. No evidence for small or large bowel obstruction. There is no evidence of abdominal ascites or lymphadenopathy. There is no evidence of intrinsic or extrinsic bladder mass. There is no pelvic ascites or lymphadeno jim. Prostatic calcifications are present. Images of the lung bases show no evidence of pleural or parenchymal mass. There are no pleural effusi ons. The bony structures are free of lytic or blastic lesions. Multilevel degenerative changes are seen in volving the thoracolumbar spine. Status post left total hip replacement. Scattered calcifications are seen involving the aorta and major branches compatible with atherosclero sis. No evidence of aortic aneurysm or dissection. IMPRESSION: No evidence of acute abdominal or pelvic pathology. Thank you for your kind referral of this patient.
--- NOTE | 2016-08-23 19:50 | REPUSA ---
CLINICAL HISTORY: JAW PAIN, BACK PAIN, R/O DISSECTION TECHNIQUE: Multiple axial CT images were obtained through chest with IV contrast material. MPR arriaga l and sagittal sequences were obtained. COMMENTS: There is no evidence of pleural or parenchymal mass. There are no pleural effusions. There is no evid ence of hilar or mediastinal lymphadenopathy. The heart and great vessels are within normal limits. There is no aortic dissection or aneurysm. The visualized portions of the liver are of uniform attenuation without mass or defect. There is no i ntra or extrahepatic biliary ductal dilatation. The spleen is unremarkable. The visualized pancreas i s of normal contour and attenuation characteristics. There is no evidence of adrenal mass. The visual ized portions of the kidneys present no abnormalities. The bony structures are free of lytic or blastic lesions. Multilevel degenerative changes are seen in volving the thoracic spine. Scattered calcifications are seen involving the aorta and visualized oscar r branches compatible with atherosclerosis. No evidence for abnormal enhancement. IMPRESSION: No evidence of acute thoracic pathology. There is no aortic dissection or aneurysm. Thank you for your kind referral of this patient.
[2016-08-23] MEDS ORDERED: traMADol 50 MG TAB As Ordered ONE (21:22)
--- NOTE | 2016-08-23 21:43 | EDDOCDS ---
Nurse's Notes [facility] Name: Fred Moseley Age: 71 yrs Sex: Male : 1945 Arrival Date: 08/23/2016 Time: 16:00 Bed 5 Private MD: Jaun Jennings Diagnosis: Temporomandibular joint disorder, unspecified;Osteoarthritis, unspecified site Presentation: 08/23 16:08 Presenting complaint: Patient states: pain in both shoulder gotten progressively worse cjh was seen here last night but now having additional left jaw pain. Adult Sepsis Screening: The patient does not have new or worsening altered mentation. Patient's respiratory rate is less than 22. Systolic blood pressure is greater than 100. Patient has a qSOFA score of 0- Negative Sepsis Screen. Suicide/Homicide risk assessment- the patient denies having any suicidal and/or homicidal ideations and does not present with any other emotional, behavioral or mental health complaints. Status: Patient is not a light fixture servicer or dependent. Transition of care: patient was not received from another setting of care. 16:08 Acuity: KYLE Level 2 [facility] 16:08 Method Of Arrival: Walkin/Carried/Asstd [facility] Triage Assessment: 16:12 General: Appears in no apparent distress, comfortable, obese, Behavior is appropriate [facility] for age, cooperative. Pain: Location: face, back, right arm and left arm Pain currently is 7 out of 10 on a pain scale. Respiratory: Airway is patent Respiratory effort is even, unlabored, Respiratory pattern is regular, symmetrical. Derm: Skin is pink, warm & dry. Historical: - Allergies: unknown medication; Amoxicillin; - Home Meds: 1. Aciphex Oral every other day 2. aspirin 81 mg Oral tab 1 tab once daily 3. Lipitor Oral 4. Lisinopril Oral Unknown once daily 5. Metoprolol Tartrate Oral 6. naproxen 500 mg Oral tab every 12 hours 7. Toprol XL Oral Unknown once daily 8. Tylenol #3 Oral Unknown from old rx - med 3 years old... 9. Diazepam Unknown Oral 2 times per day (Last dose: 08/23/2016 12:00) - PMHx: Arthritis; cardiac stent; Chronic Back pain; GERD; Heart Murmur; Hypertension; - PSHx: left hip arthroplasty; ankle fusion; Cardiac stents; - Social history: Smoking status: Patient states former smoker of tobacco. No barriers to communication noted. - Family history: Not pertinent. - : The pt / caregiver states he / she is not on anticoagulants. Home medication list is obtained from the patient. - Exposure Risk Screening:: None identified. Screenin:22 Screening information is obtained from the patient. Fall risk: No risks identified. js15 Assistance ADL's: requires no assistance with activities of daily living. Abuse/DV Screen: The patient / caregiver reports he/she is: not in a situation that causes fear, pain or injury. Nutritional screening: No deficits noted. Advance Directives: There is no active DNR order. home support is adequate. Assessment: 16:45 General: Appears in no apparent distress, comfortable, Behavior is appropriate for age, pml cooperative. Pain: Location: left jaw and left arm Pain currently is 8 out of 10 on a pain scale. Neurological: Level of Consciousness is awake, alert, Oriented to person, place, time. Cardiovascular: Capillary refill < 3 seconds Rhythm is sinus rhythm No ectopy. Respiratory: Airway is patent Respiratory effort is even, unlabored, Respiratory pattern is regular, symmetrical. GI: Abdomen is non- distended obese. Derm: Skin is pink, warm & dry. 17:46 General: resting on stretcher, resps easy and unlabored, skin p/w/d. states pain pml remains 8/10 in jaw. sinus rhythm on monitor. . 19:15 General: Appears in no apparent distress, comfortable, Behavior is appropriate for age, js15 cooperative. Pain: Location: left jaw and back Pain currently is 8 out of 10 on a pain scale. Neurological: Level of Consciousness is awake, alert, obeys commands, Oriented to person, place, time. Cardiovascular: Rhythm is sinus rhythm. Respiratory: Airway is patent Respiratory effort is even, unlabored, Respiratory pattern is regular, symmetrical. Derm: Skin is pink, warm & dry. 20:00 Reassessment: Patient appears in no apparent distress at this time. Pt ambulated to 15 bathroom without assistance or difficulty; upon return to bed, respirations even and unlabored; skin pink, warm, dry, cardiac rhythm is NSR; will continue to monitor. 21:00 Reassessment: Patient appears in no apparent distress at this time. Pt resting on 15 stretcher, watching tv; respirations even and unlabored; skin pink, warm, dry. 21:38 General: Appears in no apparent distress, comfortable, Behavior is appropriate for age, js15 cooperative. Pain: Location: left jaw and back and face Pain currently is 8 out of 10 on a pain scale. Neurological: Level of Consciousness is awake, alert, obeys commands, Oriented to person, place, time. Respiratory: Airway is patent Respiratory effort is even, unlabored, Respiratory pattern is regular, symmetrical. Derm: Skin is pink, warm & dry. Vital Signs: 16:02 BP 149 / 91; Pulse 89; Resp 18 S; Temp 98.1(O); Pulse Ox 97% on R/A; Weight 140.61 kg gr2 (R); Height 5 ft. 8 in. (172.72 cm) (R); Pain 8/10; 16:16 BP 138 / 70 (auto/); pml 16:17 Pulse 86 MON; Pulse Ox 98% ; pml 16:39 Pulse 86 MON; Pulse Ox 95% ; pml 16:39 BP 161 / 79 (auto/); pml 16:52 Pulse 84 MON; Pulse Ox 95% ; pml 16:52 BP 167 / 86 (auto/); pml 17:07 Pulse 82 MON; Pulse Ox 93% ; pml 17:07 BP 171 / 77 (auto/); pml 17:22 Pulse 84 MON; Pulse Ox 96% ; pml 17:22 BP 162 / 105 (auto/); pml 17:37 Pulse 76 MON; Pulse Ox 94% ; pml 17:37 BP 130 / 66 (auto/); pml 19:52 BP 136 / 69 (auto/); js15 19:52 Pulse 80 MON; Pulse Ox 95% ; js15 20:07 BP 136 / 72 (auto/); js15 20:07 Pulse 86 MON; Pulse Ox 96% ; js15 21:15 BP 160 / 77; Pulse 83; Resp 18; Temp 97.6(O); Pulse Ox 97% on R/A; Pain 5/10; carlos 16:02 Body Mass Index 47.13 (140.61 kg, 172.72 cm) gr2 Vitals: 16:02 Log In Time: August 23, 2016 at 16:02. RN notified that patient meets Red Flag gr2 criteria. ED Course: 16:02 Patient visited by Nelly Almazan. gr2 16:02 Jaun Jennings is Private Physician. gr2 16:02 Patient moved to Waiting gr2 16:04 Patient visited by Nelly Almazan. gr2 16:04 Patient moved to Pre RCE gr2 16:10 Triage Initiated cjh 16:20 Patient visited by Mercedes Mayorga. sew 16:25 Patient moved to PR2 / sew 16:25 EKG done. (by ED staff). Reviewed by Surjit Rust MD. sew 16:26 Patient visited by Mercedes Mayorga. sew 16:31 Carol Bueno DO is PHCP. jo4 16:31 Surjit Rust MD is Attending Physician. jo4 16:31 Patient moved to 5 kr3 16:46 Patient visited by Mirella Huddleston,VIOLET. pml 16:50 Patient visited by Carol Bueno DO. jo4 16:50 Patient visited by Carol Bueno DO. jo4 17:42 [facility] Payment Agreement was scanned into [employer] and attached to record. ks16 17:47 Patient visited by Mirella Huddleston,VIOLET. pml 18:32 Patient visited by Surjit Rust MD. br1 19:00 The patient / caregiver is instructed regarding the plan of care and ED course. js15 19:00 Maintain field IV. maintain IV started by previous shift; 18 G RAC. js15 19:37 Attending Physician role handed off by Surjit Rust MD cs11 19:37 Hero Chang DO is Attending Physician. cs11 19:37 Patient visited by Monica Schmidt PCA. carlos 20:16 CT Chest with contrast Returned. EDMS 20:16 CT ABD & PELVIS: IV Contrast Only Returned. EDMS 20:19 Patient visited by Kelsie Hart,VIOLET. js15 21:08 Jaun Jennings is Referral Physician. cs11 21:15 Patient visited by Monica Schmidt PCA. carlos 21:40 Discontinued IV lock intact, bleeding controlled, pressure dressing applied, No js15 redness/swelling at site. No procedures done that require assistance. Administered Medications: 21:25 Drug: traMADol 50 mg [tramadol 50 mg tablet (1 tabs)] Route: PO; js15 Order Results: Lab Order: Basic Metabolic Profile; SPEC'M 08/23/16 16:42 Test: GLUCOSE, FASTING; Value: 138; Range: 83-110; Abnormal: Above high normal; Units: MG/DL; Status: F Test: BLOOD UREA NITROGEN; Value: 13; Range: 7-18; Units: MG/DL; Status: F Test: CREATININE FOR GFR; Value: 0.91; Range: 0.70-1.30; Units: MG/DL; Status: F Test: GLOMERULAR FILTRATION RATE; Value: > 60.0; Range: >42; Status: F Test: SODIUM LEVEL; Value: 140; Range: 136-145; Units: MEQ/L; Status: F Test: POTASSIUM SERUM; Value: 3.9; Range: 3.5-5.1; Units: MEQ/L; Status: F Test: CHLORIDE LEVEL; Value: 105; Range: 98-107; Units: MEQ/L; Status: F Test: CARBON DIOXIDE LEVEL; Value: 27; Range: 21-32; Units: MEQ/L; Status: F Test: ANION GAP; Value: 8; Range: 8-16; Units: MEQ/L; Status: F Test: CALCIUM LEVEL; Value: 9.0; Range: 8.8-10.2; Units: MG/DL; Status: F Test Note: ; Units are mL/min/1.73 m2 Chronic Kidney Disease Staging per NKF: Stage I & II GFR >=60 Normal to Mildly Decreased Stage III GFR 30-59 Moderately Decreased Stage IV GFR 15-29 Severely Decreased Stage V GFR <15 Very Little GFR Left ESRD GFR <15 on DYE STAND LOADER Lab Order: CBC with Diff; SPEC'M 08/23/16 16:42 Test: WHITE BLOOD COUNT; Value: 7.7; Range: 4.0-10.0; Units: K/mm3; Status: F Test: RED BLOOD COUNT; Value: 4.93; Range: 4.30-6.10; Units: M/mm3; Status: F Test: HEMOGLOBIN; Value: 14.2; Range: 14.0-18.0; Units: g/dl; Status: F Test: HEMATOCRIT; Value: 41.8; Range: 42.0-52.0; Abnormal: Below low normal; Units: %; Status: F Test: MEAN CORPUSCULAR VOLUME; Value: 84.8; Range: 80.0-96.0; Units: fl; Status: F Test: MEAN CORPUSCULAR HEMOGLOBIN; Value: 28.9; Range: 27.0-33.0; Units: pg; Status: F Test: MEAN CORPUSCULAR HGB CONC; Value: 34.0; Range: 32.0-36.5; Units: g/dl; Status: F Test: RED CELL DISTRIBUTION WIDTH; Value: 13.5; Range: 11.5-14.5; Units: %; Status: F Test: PLATELET COUNT, AUTOMATED; Value: 161; Range: 150-450; Units: k/mm3; Status: F Test: NEUTROPHILS %; Value: 73.8; Range: 36.0-66.0; Abnormal: Above high normal; Units: %; Status: F Test: LYMPH %; Value: 13.0; Range: 24.0-44.0; Abnormal: Below low normal; Units: %; Status: F Test: MONO %; Value: 6.9; Range: 0.0-5.0; Abnormal: Above high normal; Units: %; Status: F Test: EOS %; Value: 3.9; Range: 0.0-3.0; Abnormal: Above high normal; Units: %; Status: F Test: BASO %; Value: 0.4; Range: 0.0-1.0; Units: %; Status: F Test: LARGE UNSTAINED CELL %; Value: 2.0; Range: 0.0-4.0; Units: %; Status: F Test: NEUTROPHILS #; Value: 5.7; Range: 1.8-7.7; Units: K/mm3; Status: F Test: LYMPH #; Value: 1.0; Range: 1.5-4.5; Abnormal: Below low normal; Units: K/mm3; Status: F Test: MONO #; Value: 0.5; Range: 0.0-0.8; Units: K/mm3; Status: F Test: EOS #; Value: 0.3; Range: 0.0-0.50; Units: K/mm3; Status: F Test: BASO #; Value: 0.0; Range: 0.0-0.2; Units: K/mm3; Status: F Test: LARGE UNSTAINED CELL #; Value: 0.2; Range: 0.0-0.4; Units: K/mm3; Status: F Lab Order: Cardiac Injury Profile; SPEC'M 08/23/16 16:42 Test: CPK CREATINE PHOSPHOKINASE; Value: 335; Range: 39-308; Abnormal: Above high normal; Units: U/L; Status: F Test: CK-MB VALUE MASS; Value: 3.6; Range: 0.0-3.6; Units: NG/ML; Status: F Test: MB/CK RELATIVE INDEX; Value: 1.07; Range: < OR =4; Status: F Test Note: ; DIAGNOSIS CRITERIA MMB ng/ml Relative Index (RI) NON-AMI < or = 5 N/A MARIANO ZONE > 5 < or = 4 AMI > 5 > 4 Lab Order: Troponin; SPEC'M 08/23/16 16:42 Test: TROPONIN I; Value: < 0.02; Range: < 0.10; Units: NG/ML; Status: F Test Note: ; Troponin I Reference Interval for [employer] LOCI: 99th Percentile= 0.00-0.045 ng/ml Risk Stratification: <= 0.10 ng/ml Decreased Risk for Adverse Clinical Events. 0.10-1.50 ng/ml Increased Risk for Adverse Clinical Events. Evaluation of additional criterion and/or repeat testing in 2-6 hours is suggested to rule out myocardial damage. >= 1.50 ng/ml Indicative of Myocardial Injury. Radiology Order: CT ABD & PELVIS: IV Contrast Only Test: CT ABD & PELVIS: IV Contrast Only REASON FOR EXAMINATION: Jaw pain, back pain, r/o dissection; ; CLINICAL HISTORY: Abdominal pain.; TECHNIQUE: Multiple axial, sagittal and coronal CT images were obtained through the abdomen and pelvi; s after administration of intravenous contrast material.; COMMENTS:; The liver is of uniform attenuation without mass or defect. There is no intra or extrahepatic biliary; ductal dilatation. The spleen is normal. The gallbladder is within normal limits. The pancreas is of; normal contour and attenuation characteristics. There is no evidence of adrenal mass.; Both kidneys demonstrate prompt and equal nephrograms. The kidneys are normal in size, shape and conf; iguration. There is no evidence of renal or ureteral mass. No renal or ureteral calculi are identifie; d. There is no hydroureter or hydronephrosis.; No evidence for appendicitis. There is no bowel wall thickening. Sigmoid diverticulosis seen withou; t evidence of diverticulitis. No evidence for small or large bowel obstruction. There is no evidence; of abdominal ascites or lymphadenopathy.; There is no evidence of intrinsic or extrinsic bladder mass. There is no pelvic ascites or lymphadeno; jim. Prostatic calcifications are present.; Images of the lung bases show no evidence of pleural or parenchymal mass. There are no pleural effusi; ons.; The bony structures are free of lytic or blastic lesions. Multilevel degenerative changes are seen in; volving the thoracolumbar spine. Status post left total hip replacement.; Scattered calcifications are seen involving the aorta and major branches compatible with atherosclero; sis. No evidence of aortic aneurysm or dissection.; IMPRESSION:; No evidence of acute abdominal or pelvic pathology.; Thank you for your kind referral of this patient.; ; Radiology Order: CT Chest with contrast Test: CT Chest with contrast REASON FOR EXAMINATION: Jaw pain, back pain, r/o dissection; ; CLINICAL HISTORY: JAW PAIN, BACK PAIN, R/O DISSECTION; TECHNIQUE: Multiple axial CT images were obtained through chest with IV contrast material. MPR arriaga; l and sagittal sequences were obtained.; COMMENTS:; There is no evidence of pleural or parenchymal mass. There are no pleural effusions. There is no evid; ence of hilar or mediastinal lymphadenopathy. The heart and great vessels are within normal limits.; There is no aortic dissection or aneurysm.; The visualized portions of the liver are of uniform attenuation without mass or defect. There is no i; ntra or extrahepatic biliary ductal dilatation. The spleen is unremarkable. The visualized pancreas i; s of normal contour and attenuation characteristics. There is no evidence of adrenal mass. The visual; ized portions of the kidneys present no abnormalities.; The bony structures are free of lytic or blastic lesions. Multilevel degenerative changes are seen in; volving the thoracic spine. Scattered calcifications are seen involving the aorta and visualized oscar; r branches compatible with atherosclerosis.; No evidence for abnormal enhancement.; IMPRESSION:; No evidence of acute thoracic pathology.; There is no aortic dissection or aneurysm.; Thank you for your kind referral of this patient.; ; ; Outcome: 21:09 Discharge ordered by Provider. cs11 21:40 Discharge Assessment: Patient awake, alert and oriented x 3. No cognitive and/or js15 functional deficits noted. Patient verbalized understanding of disposition instructions. patient administered narcotics - yes. Pt provided with safe discharge. The following High Risk Discharge criteria are identified: None. Discharged to home via wheelchair. Condition: stable. Discharge instructions given to patient, Instructed on discharge instructions, follow up and referral plans. medication usage, no driving heavy equipment, Demonstrated understanding of instructions, medications, Pt was receptive of discharge instructions/ teaching. Prescriptions given X 2. CT Study completed. Property sent home with patient. 21:41 Patient left the ED. js15 Signatures: Dispatcher [employer] EDMS Adriana Kirby,RN RN kr3 Surjit Rust MD MD br1 Monica Schmidt, CONCRETE POURER CONCRETE POURER carlos Mirella HuddlestonRN Carol Barth,RN RN [facility] Mercedes Mayorga Craig, DO DO cs11 Nelly Almazan gr2 Kelsie Hart RN RN js15 Carol Bueno, DO DO jo4 Ale Lizama, Reg Reg ks16 MTDD
--- NOTE | 2016-08-23 21:43 | EDDOCDS ---
Physician Documentation [facility] Name: Fred Moseley Age: 71 yrs Sex: Male : 1945 Arrival Date: 08/23/2016 Time: 16:00 Bed 5 Private MD: Jaun Jennings Disposition: 08/23 18:32 I have independently interviewed and examined the patient, and I agree with the br1 investigation, diagnosis and treatment plan as documented by the Resident. Disposition: 08/23/16 21:09 Discharged to Home/Self Care. Impression: Temporomandibular joint disorder, unspecified, Osteoarthritis, unspecified site. - Condition is Stable. - Prescriptions for Prednisone 20 mg Oral Tablet - take 3 tablet by ORAL route once daily for 5 days; 15 tablet. Tramadol 50 mg Oral Tablet - take 0.5 tablet by ORAL route 4 times per day MDD: 2 tabs; 10 tablet. - Medication Reconciliation, Local Pharmacy Hours form. - Follow up: Jaun Jennings; When: Call to arrange an appointment; Reason: Recheck today's complaints. - Problem is chronic. - Symptoms have improved. Historical: - Allergies: unknown medication; Amoxicillin; - Home Meds: 1. Aciphex Oral every other day 2. aspirin 81 mg Oral tab 1 tab once daily 3. Lipitor Oral 4. Lisinopril Oral Unknown once daily 5. Metoprolol Tartrate Oral 6. naproxen 500 mg Oral tab every 12 hours 7. Toprol XL Oral Unknown once daily 8. Tylenol #3 Oral Unknown from old rx - med 3 years old... 9. Diazepam Unknown Oral 2 times per day (Last dose: 08/23/2016 12:00) - PMHx: Arthritis; cardiac stent; Chronic Back pain; GERD; Heart Murmur; Hypertension; - PSHx: left hip arthroplasty; ankle fusion; Cardiac stents; - Social history: Smoking status: Patient states former smoker of tobacco. No barriers to communication noted. - Family history: Not pertinent. - : The pt / caregiver states he / she is not on anticoagulants. Home medication list is obtained from the patient. - Exposure Risk Screening:: None identified. Vital Signs: 16:02 BP 149 / 91; Pulse 89; Resp 18 S; Temp 98.1(O); Pulse Ox 97% on R/A; Weight 140.61 kg / gr2 309.99 lbs (R); Height 5 ft. 8 in. (172.72 cm) (R); Pain 8/10; 16:16 BP 138 / 70 (auto/); pml 16:17 Pulse 86 MON; Pulse Ox 98% ; pml 16:39 Pulse 86 MON; Pulse Ox 95% ; pml 16:39 BP 161 / 79 (auto/); pml 16:52 Pulse 84 MON; Pulse Ox 95% ; pml 16:52 BP 167 / 86 (auto/); pml 17:07 Pulse 82 MON; Pulse Ox 93% ; pml 17:07 BP 171 / 77 (auto/); pml 17:22 Pulse 84 MON; Pulse Ox 96% ; pml 17:22 BP 162 / 105 (auto/); pml 17:37 Pulse 76 MON; Pulse Ox 94% ; pml 17:37 BP 130 / 66 (auto/); pml 19:52 BP 136 / 69 (auto/); js15 19:52 Pulse 80 MON; Pulse Ox 95% ; js15 20:07 BP 136 / 72 (auto/); js15 20:07 Pulse 86 MON; Pulse Ox 96% ; js15 21:15 BP 160 / 77; Pulse 83; Resp 18; Temp 97.6(O); Pulse Ox 97% on R/A; Pain 5/10; carlos 16:02 Body Mass Index 47.13 (140.61 kg, 172.72 cm) gr2 MDM: 16:05 ECG WITH READING ER PHYS+CARDIAG ordered. EDMS 17:09 Program Paraprofessional/Pulse Ox/q 30 min VS ordered. jc4 17:09 IV Saline Lock ordered. jc4 17:09 Rhythm Strip to chart ordered. jc4 17:09 Undress patient appropriately for examination ordered. jc4 17:10 Basic Metabolic Profile Ordered. EDMS 17:10 CBC with Diff Ordered. EDMS 17:10 Cardiac Injury Profile Ordered. EDMS 17:10 Troponin Ordered. EDMS 17:36 Basic Metabolic Profile Reviewed. jo4 17:37 CBC with Diff Reviewed. jo4 17:37 Cardiac Injury Profile Reviewed. jo4 17:38 Troponin Reviewed. jo4 17:42 Financial registration complete. ks16 17:42 [facility] Payment Agreement was scanned into Other Machine and attached to record. ks16 18:11 CT ABD & PELVIS: IV Contrast Only Ordered. EDMS 18:34 ED course: Seen with resident agree with findings. Complains of left TMJ pain since br1 early this AM. Reproducible with palpation and ranging jaw. Enzymes after >6 hours pain negative. Denies any chest pain or shortness of breath. Was seen yesterday for diffuse joint pain, reproducibly tender throughout, does complain of back pain. Will CT chest to r/o any intrathoracic dissection or pathology, if negative, likely pain control and follow up with PCP.. 18:38 CT Chest with contrast Ordered. EDMS 21:01 traMADol 50 mg PO once ordered. cs11 21:07 CT ABD & PELVIS: IV Contrast Only Reviewed. cs11 21:07 CT Chest with contrast Reviewed. cs11 Administered Medications: 21:25 Drug: traMADol 50 mg [tramadol 50 mg tablet (1 tabs)] Route: PO; js15 Signatures: Dispatcher [employer] EDMS Surjit Rust MD MD br1 Fariha Toure, RN RN jc4 Mirella HuddlestonRN VIOLET [facility] Carol KenneyRN VIOLET [facility] Hero Chang, DO cs11 Kelsie HartRN VIOLET js15 Carol Bueno, DO DO jo4 Ale Lizama, Reg Reg ks16 The chart was reviewed and I authenticate all verbal orders and agree with the evaluation and treatment provided.Corrections: (The following items were deleted from the chart) 18:24 18:10 CT Chest with contrast+CT ordered. EDMS EDMS 18:38 18:24 CT ANGIO CHEST ordered. EDVA EDMS Attachments: 17:42 [facility] Payment Agreement ks16 MTDD
--- NOTE | 2016-08-24 13:07 | ECGEPIP ---
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
--- NOTE | 2016-08-25 22:41 | EDDOCDS ---
Nurse's Notes [facility] Name: Fred Moseley Age: 71 yrs Sex: Male : 1945 Arrival Date: 08/23/2016 Time: 16:00 Bed 5 Private MD: Jaun Jennings Diagnosis: Temporomandibular joint disorder, unspecified;Osteoarthritis, unspecified site Presentation: 08/23 16:08 Presenting complaint: Patient states: pain in both shoulder gotten progressively worse cjh was seen here last night but now having additional left jaw pain. Adult Sepsis Screening: The patient does not have new or worsening altered mentation. Patient's respiratory rate is less than 22. Systolic blood pressure is greater than 100. Patient has a qSOFA score of 0- Negative Sepsis Screen. Suicide/Homicide risk assessment- the patient denies having any suicidal and/or homicidal ideations and does not present with any other emotional, behavioral or mental health complaints. Status: Patient is not a sales & service associate or dependent. Transition of care: patient was not received from another setting of care. 16:08 Acuity: KYLE Level 2 [facility] 16:08 Method Of Arrival: Walkin/Carried/Asstd [facility] Triage Assessment: 16:12 General: Appears in no apparent distress, comfortable, obese, Behavior is appropriate [facility] for age, cooperative. Pain: Location: face, back, right arm and left arm Pain currently is 7 out of 10 on a pain scale. Respiratory: Airway is patent Respiratory effort is even, unlabored, Respiratory pattern is regular, symmetrical. Derm: Skin is pink, warm & dry. Historical: - Allergies: unknown medication; Amoxicillin; - Home Meds: 1. Aciphex Oral every other day 2. aspirin 81 mg Oral tab 1 tab once daily 3. Lipitor Oral 4. Lisinopril Oral Unknown once daily 5. Metoprolol Tartrate Oral 6. naproxen 500 mg Oral tab every 12 hours 7. Toprol XL Oral Unknown once daily 8. Tylenol #3 Oral Unknown from old rx - med 3 years old... 9. Diazepam Unknown Oral 2 times per day (Last dose: 08/23/2016 12:00) - PMHx: Arthritis; cardiac stent; Chronic Back pain; GERD; Heart Murmur; Hypertension; - PSHx: left hip arthroplasty; ankle fusion; Cardiac stents; - Social history: Smoking status: Patient states former smoker of tobacco. No barriers to communication noted. - Family history: Not pertinent. - : The pt / caregiver states he / she is not on anticoagulants. Home medication list is obtained from the patient. - Exposure Risk Screening:: None identified. Screenin:22 Screening information is obtained from the patient. Fall risk: No risks identified. js15 Assistance ADL's: requires no assistance with activities of daily living. Abuse/DV Screen: The patient / caregiver reports he/she is: not in a situation that causes fear, pain or injury. Nutritional screening: No deficits noted. Advance Directives: There is no active DNR order. home support is adequate. Assessment: 16:45 General: Appears in no apparent distress, comfortable, Behavior is appropriate for age, pml cooperative. Pain: Location: left jaw and left arm Pain currently is 8 out of 10 on a pain scale. Neurological: Level of Consciousness is awake, alert, Oriented to person, place, time. Cardiovascular: Capillary refill < 3 seconds Rhythm is sinus rhythm No ectopy. Respiratory: Airway is patent Respiratory effort is even, unlabored, Respiratory pattern is regular, symmetrical. GI: Abdomen is non- distended obese. Derm: Skin is pink, warm & dry. 17:46 General: resting on stretcher, resps easy and unlabored, skin p/w/d. states pain pml remains 8/10 in jaw. sinus rhythm on monitor. . 19:15 General: Appears in no apparent distress, comfortable, Behavior is appropriate for age, js15 cooperative. Pain: Location: left jaw and back Pain currently is 8 out of 10 on a pain scale. Neurological: Level of Consciousness is awake, alert, obeys commands, Oriented to person, place, time. Cardiovascular: Rhythm is sinus rhythm. Respiratory: Airway is patent Respiratory effort is even, unlabored, Respiratory pattern is regular, symmetrical. Derm: Skin is pink, warm & dry. 20:00 Reassessment: Patient appears in no apparent distress at this time. Pt ambulated to 15 bathroom without assistance or difficulty; upon return to bed, respirations even and unlabored; skin pink, warm, dry, cardiac rhythm is NSR; will continue to monitor. 21:00 Reassessment: Patient appears in no apparent distress at this time. Pt resting on 15 stretcher, watching tv; respirations even and unlabored; skin pink, warm, dry. 21:38 General: Appears in no apparent distress, comfortable, Behavior is appropriate for age, js15 cooperative. Pain: Location: left jaw and back and face Pain currently is 8 out of 10 on a pain scale. Neurological: Level of Consciousness is awake, alert, obeys commands, Oriented to person, place, time. Respiratory: Airway is patent Respiratory effort is even, unlabored, Respiratory pattern is regular, symmetrical. Derm: Skin is pink, warm & dry. Vital Signs: 16:02 BP 149 / 91; Pulse 89; Resp 18 S; Temp 98.1(O); Pulse Ox 97% on R/A; Weight 140.61 kg gr2 (R); Height 5 ft. 8 in. (172.72 cm) (R); Pain 8/10; 16:16 BP 138 / 70 (auto/); pml 16:17 Pulse 86 MON; Pulse Ox 98% ; pml 16:39 Pulse 86 MON; Pulse Ox 95% ; pml 16:39 BP 161 / 79 (auto/); pml 16:52 Pulse 84 MON; Pulse Ox 95% ; pml 16:52 BP 167 / 86 (auto/); pml 17:07 Pulse 82 MON; Pulse Ox 93% ; pml 17:07 BP 171 / 77 (auto/); pml 17:22 Pulse 84 MON; Pulse Ox 96% ; pml 17:22 BP 162 / 105 (auto/); pml 17:37 Pulse 76 MON; Pulse Ox 94% ; pml 17:37 BP 130 / 66 (auto/); pml 19:52 BP 136 / 69 (auto/); js15 19:52 Pulse 80 MON; Pulse Ox 95% ; js15 20:07 BP 136 / 72 (auto/); js15 20:07 Pulse 86 MON; Pulse Ox 96% ; js15 21:15 BP 160 / 77; Pulse 83; Resp 18; Temp 97.6(O); Pulse Ox 97% on R/A; Pain 5/10; carlos 16:02 Body Mass Index 47.13 (140.61 kg, 172.72 cm) gr2 Vitals: 16:02 Log In Time: August 23, 2016 at 16:02. RN notified that patient meets Red Flag gr2 criteria. ED Course: 16:02 Patient visited by Nelly Almazan. gr2 16:02 Jaun Jennings is Private Physician. gr2 16:02 Patient moved to Waiting gr2 16:04 Patient visited by Nelly Almazan. gr2 16:04 Patient moved to Pre RCE gr2 16:10 Triage Initiated cjh 16:20 Patient visited by Mercedes Mayorga. sew 16:25 Patient moved to PR2 / sew 16:25 EKG done. (by ED staff). Reviewed by Dhruv Rust MD. sew 16:26 Patient visited by Mercedes Mayorga. sew 16:31 Carol Bueno DO is PHCP. jo4 16:31 Dhruv Rust MD is Attending Physician. jo4 16:31 Patient moved to 5 kr3 16:46 Patient visited by Mirella Huddleston,VIOLET. pml 16:50 Patient visited by Carol Bueno DO. jo4 16:50 Patient visited by Carol Bueno DO. jo4 17:42 [facility] Payment Agreement was scanned into JDCPhosphate and attached to record. ks16 17:47 Patient visited by Mirella Huddleston,VIOLET. pml 18:32 Patient visited by Dhruv Rust MD. br1 19:00 The patient / caregiver is instructed regarding the plan of care and ED course. js15 19:00 Maintain field IV. maintain IV started by previous shift; 18 G RAC. js15 19:37 Attending Physician role handed off by Dhruv Rust MD cs11 19:37 Hero Chang DO is Attending Physician. cs11 19:37 Patient visited by Monica Schmidt PCA. carlos 20:16 CT Chest with contrast Returned. EDMS 20:16 CT ABD & PELVIS: IV Contrast Only Returned. EDMS 20:19 Patient visited by Kelsie Hart,VIOLET. js15 21:08 Jaun Jennings is Referral Physician. cs11 21:15 Patient visited by Monica Schmidt PCA. carlos 21:40 Discontinued IV lock intact, bleeding controlled, pressure dressing applied, No js15 redness/swelling at site. No procedures done that require assistance. 08/24 13:42 EKG-ADULT Returned. EDMS 17:11 T-Sheet-- Draft Copy was scanned into JDCPhosphate and attached to record. klr 17:43 ECG/EKG was scanned into JDCPhosphate and attached to record. kf3 Administered Medications: 08/23 21:25 Drug: traMADol 50 mg [tramadol 50 mg tablet (1 tabs)] Route: PO; js15 Order Results: Lab Order: Basic Metabolic Profile; SPEC'M 08/23/16 16:42 Test: GLUCOSE, FASTING; Value: 138; Range: 83-110; Abnormal: Above high normal; Units: MG/DL; Status: F Test: BLOOD UREA NITROGEN; Value: 13; Range: 7-18; Units: MG/DL; Status: F Test: CREATININE FOR GFR; Value: 0.91; Range: 0.70-1.30; Units: MG/DL; Status: F Test: GLOMERULAR FILTRATION RATE; Value: > 60.0; Range: >42; Status: F Test: SODIUM LEVEL; Value: 140; Range: 136-145; Units: MEQ/L; Status: F Test: POTASSIUM SERUM; Value: 3.9; Range: 3.5-5.1; Units: MEQ/L; Status: F Test: CHLORIDE LEVEL; Value: 105; Range: 98-107; Units: MEQ/L; Status: F Test: CARBON DIOXIDE LEVEL; Value: 27; Range: 21-32; Units: MEQ/L; Status: F Test: ANION GAP; Value: 8; Range: 8-16; Units: MEQ/L; Status: F Test: CALCIUM LEVEL; Value: 9.0; Range: 8.8-10.2; Units: MG/DL; Status: F Test Note: ; Units are mL/min/1.73 m2 Chronic Kidney Disease Staging per NKF: Stage I & II GFR >=60 Normal to Mildly Decreased Stage III GFR 30-59 Moderately Decreased Stage IV GFR 15-29 Severely Decreased Stage V GFR <15 Very Little GFR Left ESRD GFR <15 on TOP CUTTER Lab Order: CBC with Diff; SPEC'M 08/23/16 16:42 Test: WHITE BLOOD COUNT; Value: 7.7; Range: 4.0-10.0; Units: K/mm3; Status: F Test: RED BLOOD COUNT; Value: 4.93; Range: 4.30-6.10; Units: M/mm3; Status: F Test: HEMOGLOBIN; Value: 14.2; Range: 14.0-18.0; Units: g/dl; Status: F Test: HEMATOCRIT; Value: 41.8; Range: 42.0-52.0; Abnormal: Below low normal; Units: %; Status: F Test: MEAN CORPUSCULAR VOLUME; Value: 84.8; Range: 80.0-96.0; Units: fl; Status: F Test: MEAN CORPUSCULAR HEMOGLOBIN; Value: 28.9; Range: 27.0-33.0; Units: pg; Status: F Test: MEAN CORPUSCULAR HGB CONC; Value: 34.0; Range: 32.0-36.5; Units: g/dl; Status: F Test: RED CELL DISTRIBUTION WIDTH; Value: 13.5; Range: 11.5-14.5; Units: %; Status: F Test: PLATELET COUNT, AUTOMATED; Value: 161; Range: 150-450; Units: k/mm3; Status: F Test: NEUTROPHILS %; Value: 73.8; Range: 36.0-66.0; Abnormal: Above high normal; Units: %; Status: F Test: LYMPH %; Value: 13.0; Range: 24.0-44.0; Abnormal: Below low normal; Units: %; Status: F Test: MONO %; Value: 6.9; Range: 0.0-5.0; Abnormal: Above high normal; Units: %; Status: F Test: EOS %; Value: 3.9; Range: 0.0-3.0; Abnormal: Above high normal; Units: %; Status: F Test: BASO %; Value: 0.4; Range: 0.0-1.0; Units: %; Status: F Test: LARGE UNSTAINED CELL %; Value: 2.0; Range: 0.0-4.0; Units: %; Status: F Test: NEUTROPHILS #; Value: 5.7; Range: 1.8-7.7; Units: K/mm3; Status: F Test: LYMPH #; Value: 1.0; Range: 1.5-4.5; Abnormal: Below low normal; Units: K/mm3; Status: F Test: MONO #; Value: 0.5; Range: 0.0-0.8; Units: K/mm3; Status: F Test: EOS #; Value: 0.3; Range: 0.0-0.50; Units: K/mm3; Status: F Test: BASO #; Value: 0.0; Range: 0.0-0.2; Units: K/mm3; Status: F Test: LARGE UNSTAINED CELL #; Value: 0.2; Range: 0.0-0.4; Units: K/mm3; Status: F Lab Order: Cardiac Injury Profile; SPEC'M 08/23/16 16:42 Test: CPK CREATINE PHOSPHOKINASE; Value: 335; Range: 39-308; Abnormal: Above high normal; Units: U/L; Status: F Test: CK-MB VALUE MASS; Value: 3.6; Range: 0.0-3.6; Units: NG/ML; Status: F Test: MB/CK RELATIVE INDEX; Value: 1.07; Range: < OR =4; Status: F Test Note: ; DIAGNOSIS CRITERIA MMB ng/ml Relative Index (RI) NON-AMI < or = 5 N/A MARIANO ZONE > 5 < or = 4 AMI > 5 > 4 Lab Order: Troponin; SPEC'M 08/23/16 16:42 Test: TROPONIN I; Value: < 0.02; Range: < 0.10; Units: NG/ML; Status: F Test Note: ; Troponin I Reference Interval for Retroficiency LOCI: 99th Percentile= 0.00-0.045 ng/ml Risk Stratification: <= 0.10 ng/ml Decreased Risk for Adverse Clinical Events. 0.10-1.50 ng/ml Increased Risk for Adverse Clinical Events. Evaluation of additional criterion and/or repeat testing in 2-6 hours is suggested to rule out myocardial damage. >= 1.50 ng/ml Indicative of Myocardial Injury. 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; : 1945 Requested By: DHRUV Hanley; Order Number: [id number] Benny MD: Mercedes Nieves; Measurements; Intervals [place]; Rate: 84 P: 72; AK: 171 QRS: -9; QRSD: 106 T: 47; QT: 345; QTc: 410; Interpretive Statements; SINUS RHYTHM; NONSPECIFIC T-WAVE ABNORMALITY; NO PRIOR FOR COMPARISON; Electronically Signed On 08-24-2016 13:07:16 EST by Mercedes Nieves; Radiology Order: CT ABD & PELVIS: IV Contrast Only Test: CT ABD & PELVIS: IV Contrast Only REASON FOR EXAMINATION: Jaw pain, back pain, r/o dissection; ; CLINICAL HISTORY: Abdominal pain.; TECHNIQUE: Multiple axial, sagittal and coronal CT images were obtained through the abdomen and pelvi; s after administration of intravenous contrast material.; COMMENTS:; The liver is of uniform attenuation without mass or defect. There is no intra or extrahepatic biliary; ductal dilatation. The spleen is normal. The gallbladder is within normal limits. The pancreas is of; normal contour and attenuation characteristics. There is no evidence of adrenal mass.; Both kidneys demonstrate prompt and equal nephrograms. The kidneys are normal in size, shape and conf; iguration. There is no evidence of renal or ureteral mass. No renal or ureteral calculi are identifie; d. There is no hydroureter or hydronephrosis.; No evidence for appendicitis. There is no bowel wall thickening. Sigmoid diverticulosis seen withou; t evidence of diverticulitis. No evidence for small or large bowel obstruction. There is no evidence; of abdominal ascites or lymphadenopathy.; There is no evidence of intrinsic or extrinsic bladder mass. There is no pelvic ascites or lymphadeno; jim. Prostatic calcifications are present.; Images of the lung bases show no evidence of pleural or parenchymal mass. There are no pleural effusi; ons.; The bony structures are free of lytic or blastic lesions. Multilevel degenerative changes are seen in; volving the thoracolumbar spine. Status post left total hip replacement.; Scattered calcifications are seen involving the aorta and major branches compatible with atherosclero; sis. No evidence of aortic aneurysm or dissection.; IMPRESSION:; No evidence of acute abdominal or pelvic pathology.; Thank you for your kind referral of this patient.; ; Radiology Order: CT Chest with contrast Test: CT Chest with contrast REASON FOR EXAMINATION: Jaw pain, back pain, r/o dissection; ; CLINICAL HISTORY: JAW PAIN, BACK PAIN, R/O DISSECTION; TECHNIQUE: Multiple axial CT images were obtained through chest with IV contrast material. MPR arriaga; l and sagittal sequences were obtained.; COMMENTS:; There is no evidence of pleural or parenchymal mass. There are no pleural effusions. There is no evid; ence of hilar or mediastinal lymphadenopathy. The heart and great vessels are within normal limits.; There is no aortic dissection or aneurysm.; The visualized portions of the liver are of uniform attenuation without mass or defect. There is no i; ntra or extrahepatic biliary ductal dilatation. The spleen is unremarkable. The visualized pancreas i; s of normal contour and attenuation characteristics. There is no evidence of adrenal mass. The visual; ized portions of the kidneys present no abnormalities.; The bony structures are free of lytic or blastic lesions. Multilevel degenerative changes are seen in; volving the thoracic spine. Scattered calcifications are seen involving the aorta and visualized oscar; r branches compatible with atherosclerosis.; No evidence for abnormal enhancement.; IMPRESSION:; No evidence of acute thoracic pathology.; There is no aortic dissection or aneurysm.; Thank you for your kind referral of this patient.; ; ; Outcome: 21:09 Discharge ordered by Provider. cs11 21:40 Discharge Assessment: Patient awake, alert and oriented x 3. No cognitive and/or js15 functional deficits noted. Patient verbalized understanding of disposition instructions. patient administered narcotics - yes. Pt provided with safe discharge. The following High Risk Discharge criteria are identified: None. Discharged to home via wheelchair. Condition: stable. Discharge instructions given to patient, Instructed on discharge instructions, follow up and referral plans. medication usage, no driving heavy equipment, Demonstrated understanding of instructions, medications, Pt was receptive of discharge instructions/ teaching. Prescriptions given X 2. CT Study completed. Property sent home with patient. 21:41 Patient left the ED. js15 Signatures: Dispatcher [employer] EDMS Adriana KirbyRN RN kr3 Johnnie Wahl, Reg Reg kf3 Dhruv Rust MD MD br1 Monica Schmidt, EARTH SCIENCE PROFESSOR EARTH SCIENCE PROFESSOR Mirella Escobar RN RN pml Hafner, Jane, RN RN [facility] Mercedes Mayorga Craig, DO DO cs11 Nelly Almazan gr2 Kelsie Hart,VIOLET RN js15 Carol Bueno DO DO jo4 Ale Lizama, Reg Reg ks16 Dominique Elder Chart Complete MTDD
--- NOTE | 2016-08-25 22:41 | EDDOCDS ---
Physician Documentation [facility] Name: Fred Moseley Age: 71 yrs Sex: Male : 1945 Arrival Date: 08/23/2016 Time: 16:00 Bed 5 Private MD: Jaun Jennings Disposition: 08/23 18:32 I have independently interviewed and examined the patient, and I agree with the br1 investigation, diagnosis and treatment plan as documented by the Resident. Disposition: 08/23/16 21:09 Discharged to Home/Self Care. Impression: Temporomandibular joint disorder, unspecified, Osteoarthritis, unspecified site. - Condition is Stable. - Prescriptions for Prednisone 20 mg Oral Tablet - take 3 tablet by ORAL route once daily for 5 days; 15 tablet. Tramadol 50 mg Oral Tablet - take 0.5 tablet by ORAL route 4 times per day MDD: 2 tabs; 10 tablet. - Medication Reconciliation, Local Pharmacy Hours form. - Follow up: Jaun Jennings; When: Call to arrange an appointment; Reason: Recheck today's complaints. - Problem is chronic. - Symptoms have improved. Historical: - Allergies: unknown medication; Amoxicillin; - Home Meds: 1. Aciphex Oral every other day 2. aspirin 81 mg Oral tab 1 tab once daily 3. Lipitor Oral 4. Lisinopril Oral Unknown once daily 5. Metoprolol Tartrate Oral 6. naproxen 500 mg Oral tab every 12 hours 7. Toprol XL Oral Unknown once daily 8. Tylenol #3 Oral Unknown from old rx - med 3 years old... 9. Diazepam Unknown Oral 2 times per day (Last dose: 08/23/2016 12:00) - PMHx: Arthritis; cardiac stent; Chronic Back pain; GERD; Heart Murmur; Hypertension; - PSHx: left hip arthroplasty; ankle fusion; Cardiac stents; - Social history: Smoking status: Patient states former smoker of tobacco. No barriers to communication noted. - Family history: Not pertinent. - : The pt / caregiver states he / she is not on anticoagulants. Home medication list is obtained from the patient. - Exposure Risk Screening:: None identified. Vital Signs: 16:02 BP 149 / 91; Pulse 89; Resp 18 S; Temp 98.1(O); Pulse Ox 97% on R/A; Weight 140.61 kg / gr2 309.99 lbs (R); Height 5 ft. 8 in. (172.72 cm) (R); Pain 8/10; 16:16 BP 138 / 70 (auto/); pml 16:17 Pulse 86 MON; Pulse Ox 98% ; pml 16:39 Pulse 86 MON; Pulse Ox 95% ; pml 16:39 BP 161 / 79 (auto/); pml 16:52 Pulse 84 MON; Pulse Ox 95% ; pml 16:52 BP 167 / 86 (auto/); pml 17:07 Pulse 82 MON; Pulse Ox 93% ; pml 17:07 BP 171 / 77 (auto/); pml 17:22 Pulse 84 MON; Pulse Ox 96% ; pml 17:22 BP 162 / 105 (auto/); pml 17:37 Pulse 76 MON; Pulse Ox 94% ; pml 17:37 BP 130 / 66 (auto/); pml 19:52 BP 136 / 69 (auto/); js15 19:52 Pulse 80 MON; Pulse Ox 95% ; js15 20:07 BP 136 / 72 (auto/); js15 20:07 Pulse 86 MON; Pulse Ox 96% ; js15 21:15 BP 160 / 77; Pulse 83; Resp 18; Temp 97.6(O); Pulse Ox 97% on R/A; Pain 5/10; carlos 16:02 Body Mass Index 47.13 (140.61 kg, 172.72 cm) gr2 MDM: 16:05 ECG WITH READING ER PHYS+CARDIAG ordered. EDMS 17:09 Fisher Troll Line/Pulse Ox/q 30 min VS ordered. jc4 17:09 IV Saline Lock ordered. jc4 17:09 Rhythm Strip to chart ordered. jc4 17:09 Undress patient appropriately for examination ordered. jc4 17:10 Basic Metabolic Profile Ordered. EDMS 17:10 CBC with Diff Ordered. EDMS 17:10 Cardiac Injury Profile Ordered. EDMS 17:10 Troponin Ordered. EDMS 17:36 Basic Metabolic Profile Reviewed. jo4 17:37 CBC with Diff Reviewed. jo4 17:37 Cardiac Injury Profile Reviewed. jo4 17:38 Troponin Reviewed. jo4 17:42 Financial registration complete. ks16 17:42 [facility] Payment Agreement was scanned into VNG and attached to record. ks16 18:11 CT ABD & PELVIS: IV Contrast Only Ordered. EDMS 18:34 ED course: Seen with resident agree with findings. Complains of left TMJ pain since br1 early this AM. Reproducible with palpation and ranging jaw. Enzymes after >6 hours pain negative. Denies any chest pain or shortness of breath. Was seen yesterday for diffuse joint pain, reproducibly tender throughout, does complain of back pain. Will CT chest to r/o any intrathoracic dissection or pathology, if negative, likely pain control and follow up with PCP.. 18:38 CT Chest with contrast Ordered. EDMS 21:01 traMADol 50 mg PO once ordered. cs11 21:07 CT ABD & PELVIS: IV Contrast Only Reviewed. cs11 21:07 CT Chest with contrast Reviewed. cs11 08/24 17:11 T-Sheet-- Draft Copy was scanned into VNG and attached to record. klr 17:43 ECG/EKG was scanned into VNG and attached to record. kf3 Administered Medications: 08/23 21:25 Drug: traMADol 50 mg [tramadol 50 mg tablet (1 tabs)] Route: PO; js15 Signatures: Dispatcher [employer] EDMS Johnnie Wahl, Reg Reg kf3 Surjit Rust MD MD br1 Fariha Toure RN RN jc4 Mirella HuddlestonRN Carol BarthRN VIOLET [facility] Hero Chang, DO DO cs11 Kelsie HartRN RN js15 Carol Bueno, DO DO jo4 Ale Lizama, Reg Reg ks16 Dominique Elder klr The chart was reviewed and I authenticate all verbal orders and agree with the evaluation and treatment provided.Corrections: (The following items were deleted from the chart) 18:24 18:10 CT Chest with contrast+CT ordered. EDMS EDMS 18:38 18:24 CT ANGIO CHEST ordered. EDMS EDMS Attachments: 17:42 [facility] [place] ks16 08/24 17:11 T-Sheet-- Draft Copy klr 17:43 ECG/EKG kf3 Chart Complete MTDD
--- NOTE | 2016-08-25 22:41 | EDDOCDS ---
Physician Documentation [facility] Name: Fred Moseley Age: 71 yrs Sex: Male : 1945 Arrival Date: 08/23/2016 Time: 16:00 Bed 5 Private MD: Jaun Jennings Disposition: 08/23 18:32 I have independently interviewed and examined the patient, and I agree with the br1 investigation, diagnosis and treatment plan as documented by the Resident. Disposition: 08/23/16 21:09 Discharged to Home/Self Care. Impression: Temporomandibular joint disorder, unspecified, Osteoarthritis, unspecified site. - Condition is Stable. - Prescriptions for Prednisone 20 mg Oral Tablet - take 3 tablet by ORAL route once daily for 5 days; 15 tablet. Tramadol 50 mg Oral Tablet - take 0.5 tablet by ORAL route 4 times per day MDD: 2 tabs; 10 tablet. - Medication Reconciliation, Local Pharmacy Hours form. - Follow up: Jaun Jennings; When: Call to arrange an appointment; Reason: Recheck today's complaints. - Problem is chronic. - Symptoms have improved. Historical: - Allergies: unknown medication; Amoxicillin; - Home Meds: 1. Aciphex Oral every other day 2. aspirin 81 mg Oral tab 1 tab once daily 3. Lipitor Oral 4. Lisinopril Oral Unknown once daily 5. Metoprolol Tartrate Oral 6. naproxen 500 mg Oral tab every 12 hours 7. Toprol XL Oral Unknown once daily 8. Tylenol #3 Oral Unknown from old rx - med 3 years old... 9. Diazepam Unknown Oral 2 times per day (Last dose: 08/23/2016 12:00) - PMHx: Arthritis; cardiac stent; Chronic Back pain; GERD; Heart Murmur; Hypertension; - PSHx: left hip arthroplasty; ankle fusion; Cardiac stents; - Social history: Smoking status: Patient states former smoker of tobacco. No barriers to communication noted. - Family history: Not pertinent. - : The pt / caregiver states he / she is not on anticoagulants. Home medication list is obtained from the patient. - Exposure Risk Screening:: None identified. Vital Signs: 16:02 BP 149 / 91; Pulse 89; Resp 18 S; Temp 98.1(O); Pulse Ox 97% on R/A; Weight 140.61 kg / gr2 309.99 lbs (R); Height 5 ft. 8 in. (172.72 cm) (R); Pain 8/10; 16:16 BP 138 / 70 (auto/); pml 16:17 Pulse 86 MON; Pulse Ox 98% ; pml 16:39 Pulse 86 MON; Pulse Ox 95% ; pml 16:39 BP 161 / 79 (auto/); pml 16:52 Pulse 84 MON; Pulse Ox 95% ; pml 16:52 BP 167 / 86 (auto/); pml 17:07 Pulse 82 MON; Pulse Ox 93% ; pml 17:07 BP 171 / 77 (auto/); pml 17:22 Pulse 84 MON; Pulse Ox 96% ; pml 17:22 BP 162 / 105 (auto/); pml 17:37 Pulse 76 MON; Pulse Ox 94% ; pml 17:37 BP 130 / 66 (auto/); pml 19:52 BP 136 / 69 (auto/); js15 19:52 Pulse 80 MON; Pulse Ox 95% ; js15 20:07 BP 136 / 72 (auto/); js15 20:07 Pulse 86 MON; Pulse Ox 96% ; js15 21:15 BP 160 / 77; Pulse 83; Resp 18; Temp 97.6(O); Pulse Ox 97% on R/A; Pain 5/10; carlos 16:02 Body Mass Index 47.13 (140.61 kg, 172.72 cm) gr2 MDM: 16:05 ECG WITH READING ER PHYS+CARDIAG ordered. EDMS 17:09 Meal Room Hand/Pulse Ox/q 30 min VS ordered. jc4 17:09 IV Saline Lock ordered. jc4 17:09 Rhythm Strip to chart ordered. jc4 17:09 Undress patient appropriately for examination ordered. jc4 17:10 Basic Metabolic Profile Ordered. EDMS 17:10 CBC with Diff Ordered. EDMS 17:10 Cardiac Injury Profile Ordered. EDMS 17:10 Troponin Ordered. EDMS 17:36 Basic Metabolic Profile Reviewed. jo4 17:37 CBC with Diff Reviewed. jo4 17:37 Cardiac Injury Profile Reviewed. jo4 17:38 Troponin Reviewed. jo4 17:42 Financial registration complete. ks16 17:42 [facility] Payment Agreement was scanned into [employer] and attached to record. ks16 18:11 CT ABD & PELVIS: IV Contrast Only Ordered. EDMS 18:34 ED course: Seen with resident agree with findings. Complains of left TMJ pain since br1 early this AM. Reproducible with palpation and ranging jaw. Enzymes after >6 hours pain negative. Denies any chest pain or shortness of breath. Was seen yesterday for diffuse joint pain, reproducibly tender throughout, does complain of back pain. Will CT chest to r/o any intrathoracic dissection or pathology, if negative, likely pain control and follow up with PCP.. 18:38 CT Chest with contrast Ordered. EDMS 21:01 traMADol 50 mg PO once ordered. cs11 21:07 CT ABD & PELVIS: IV Contrast Only Reviewed. cs11 21:07 CT Chest with contrast Reviewed. cs11 08/24 17:11 T-Sheet-- Draft Copy was scanned into [employer] and attached to record. klr 17:43 ECG/EKG was scanned into [employer] and attached to record. kf3 Administered Medications: 08/23 21:25 Drug: traMADol 50 mg [tramadol 50 mg tablet (1 tabs)] Route: PO; js15 Signatures: Dispatcher [employer] EDMS Johnnie Wahl, Reg Reg kf3 Surjit Rust MD MD br1 Fariha Toure RN RN jc4 Mirella HuddlestonRN Carol BarthRN VIOLET [facility] Hero Chang, DO DO cs11 Kelsie HartRN RN js15 Carol Bueno, DO DO jo4 Ale Lizama, Reg Reg ks16 Dominique Elder klr The chart was reviewed and I authenticate all verbal orders and agree with the evaluation and treatment provided.Corrections: (The following items were deleted from the chart) 18:24 18:10 CT Chest with contrast+CT ordered. EDMS EDMS 18:38 18:24 CT ANGIO CHEST ordered. EDMS EDMS Attachments: 17:42 [facility] Payment Agreement ks16 08/24 17:11 T-Sheet-- Draft Copy klr 17:43 ECG/EKG kf3 Chart Complete MTDD
== END 2016-08-23 21:41 | disposition home or self-care (01) ==
LOC: M ED 16:00
DX: M26.629 Arthralgia of temporomandibular joint, unspecified side (principal); M19.90 Unspecified osteoarthritis, unspecified site; I10 Essential (primary) hypertension; E78.5 Hyperlipidemia, unspecified; K21.9 Gastro-esophageal reflux disease without esophagitis; G47.30 Sleep apnea, unspecified; R01.1 Cardiac murmur, unspecified; J30.2 Other seasonal allergic rhinitis; M54.9 Dorsalgia, unspecified; G89.29 Other chronic pain; Z95.5 Presence of coronary angioplasty implant and graft; Z79.899 Other long term (current) drug therapy; Z79.82 Long term (current) use of aspirin; Z88.1 Allergy status to other antibiotic agents; Z87.891 Personal history of nicotine dependence
CPT/HCPCS: 71260; 74177; 80048; 82550; 82553; 84484; 85025; 93005; 93041; 99284; Q9967

== ENCOUNTER → 2016-09-17 | Outpatient (REF) | payer MEDICARE, OTHER ==
[2016-09-17 11:39] LABS: MEAN CORPUSCULAR HEMOGLOBIN 28.5 pg (27.0-33.0); MEAN CORPUSCULAR HGB CONC 33.4 g/dl (32.0-36.5); MEAN CORPUSCULAR VOLUME 85.4 fl (80.0-96.0); RED CELL DISTRIBUTION WIDTH 13.8 % (11.5-14.5); WHITE BLOOD COUNT 4.3 K/mm3 (4.0-10.0)
[2016-09-17 12:11] LABS: ALBUMIN 4.1 GM/DL (3.2-5.2); ALBUMIN/GLOBULIN RATIO 1.41 (1.00-1.93); ALKALINE PHOSPHATASE 105 U/L (45-117); ALT/SGPT 39 U/L (12-78); ANION GAP 7 MEQ/L (8-16); AST/SGOT 22 U/L (15-37); BILIRUBIN,TOTAL 0.9 MG/DL (0.2-1.0); BLOOD UREA NITROGEN 19 MG/DL (7-18); CALCIUM LEVEL 8.9 MG/DL (8.8-10.2); CARBON DIOXIDE LEVEL 27 MEQ/L (21-32); CHLORIDE LEVEL 106 MEQ/L (98-107); CHOLESTEROL LEVEL 149 MG/DL (<200); CREATININE FOR GFR 0.89 MG/DL (0.70-1.30); GLOMERULAR FILTRATION RATE > 60.0 (>42); GLUCOSE, FASTING 131 MG/DL (83-110); MAGNESIUM LEVEL 1.9 MG/DL (1.8-2.4); SODIUM LEVEL 140 MEQ/L (136-145); TRIGLYCERIDES LEVEL 142 MG/DL (<150)
== END ==
LOC: M SFHCPLAZ 07:44
PROVIDERS: ATTEND Internal Medicine
DX: G47.30 Sleep apnea, unspecified (principal); I10 Essential (primary) hypertension; E78.00 Pure hypercholesterolemia, unspecified; E55.9 Vitamin D deficiency, unspecified

== ENCOUNTER → 2017-02-24 | Outpatient (CLI) | payer MEDICARE, OTHER ==
--- NOTE | 2017-02-24 09:37 | REP ---
LEFT FOOT SERIES: Four views left foot performed. There is a nondisplaced fracture of the fourth proximal phalanx at its base. No other acute fracture or dislocation is seen. Calcifications are seen in the distal Achilles tendon and in the posterior plantar tendon. There is mild posterior and inferior calcaneal spurring. IMPRESSION: Nondisplaced fracture base of fourth proximal phalanx. Signed by Paulino Callejas MD 02/24/2017 03:28 P
== END ==
LOC: M WUC 08:37
PROVIDERS: ATTEND Physician Assistant Medical
DX: S92.515A Nondisplaced fracture of proximal phalanx of left lesser toe(s), initial encounter for closed fracture (principal); X58.XXXA Exposure to other specified factors, initial encounter; Y93.9 Activity, unspecified; Y92.9 Unspecified place or not applicable; Y99.8 Other external cause status

== ENCOUNTER → 2017-03-10 | Outpatient (REF) | payer MEDICARE, OTHER ==
[2017-03-10 13:09] LABS: ALBUMIN 4.4 GM/DL (3.2-5.2); ALBUMIN/GLOBULIN RATIO 1.63 (1.00-1.93); ALKALINE PHOSPHATASE 107 U/L (45-117); ALT/SGPT 46 U/L (12-78); ANION GAP 10 MEQ/L (8-16); AST/SGOT 31 U/L (15-37); BILIRUBIN,TOTAL 1.1 MG/DL (0.2-1.0); BLOOD UREA NITROGEN 20 MG/DL (7-18); CALCIUM LEVEL 9.4 MG/DL (8.8-10.2); CARBON DIOXIDE LEVEL 26 MEQ/L (21-32); CHLORIDE LEVEL 105 MEQ/L (98-107); CREATININE FOR GFR 1.08 MG/DL (0.70-1.30); GLOMERULAR FILTRATION RATE > 60.0 (>42); GLUCOSE, FASTING 127 MG/DL (83-110); POTASSIUM SERUM 4.4 MEQ/L (3.5-5.1); SODIUM LEVEL 141 MEQ/L (136-145); TOTAL PROTEIN 7.1 GM/DL (6.4-8.2)
== END ==
LOC: M SFHCPLAZ 08:03
PROVIDERS: ATTEND Internal Medicine
DX: I10 Essential (primary) hypertension (principal); E11.9 Type 2 diabetes mellitus without complications; E55.9 Vitamin D deficiency, unspecified

== ENCOUNTER → 2017-03-10 | Outpatient (REF) | payer MEDICARE, OTHER ==
[2017-03-10 12:49] LABS: MAGNESIUM LEVEL 2.3 MG/DL (1.8-2.4)
== END ==
LOC: M LABDRAWP 11:11
PROVIDERS: ATTEND Internal Medicine Gastroenterology
DX: E55.9 Vitamin D deficiency, unspecified (principal)

== ENCOUNTER → 2017-09-08 | Outpatient (REF) | payer MEDICARE, OTHER ==
[2017-09-08 12:24] LABS: MEAN CORPUSCULAR HEMOGLOBIN 28.1 pg (27.0-33.0); MEAN CORPUSCULAR HGB CONC 32.6 g/dl (32.0-36.5); MEAN CORPUSCULAR VOLUME 86.1 fl (80.0-96.0); PLATELET COUNT, AUTOMATED 176 10^3/uL (150-450); RED BLOOD COUNT 5.34 10^6/uL (4.30-6.10); RED CELL DISTRIBUTION WIDTH 13.4 % (11.5-14.5); WHITE BLOOD COUNT 6.2 10^3/uL (4.0-10.0)
[2017-09-08 12:32] LABS: ESTIMATED AVERAGE GLUCOSE 140 MG/DL (60-110); HEMOGLOBIN A1c 6.5 %
[2017-09-08 12:52] LABS: ALBUMIN 4.4 GM/DL (3.2-5.2); ALBUMIN/GLOBULIN RATIO 1.63 (1.00-1.93); ALKALINE PHOSPHATASE 117 U/L (45-117); ALT/SGPT 37 U/L (12-78); ANION GAP 9 MEQ/L (8-16); AST/SGOT 25 U/L (7-37); BILIRUBIN,TOTAL 0.9 MG/DL (0.2-1.0); BLOOD UREA NITROGEN 18 MG/DL (7-18); CALCIUM LEVEL 9.3 MG/DL (8.8-10.2); CARBON DIOXIDE LEVEL 29 MEQ/L (21-32); CHLORIDE LEVEL 103 MEQ/L (98-107); CHOLESTEROL LEVEL 153 MG/DL (<200); CHOLESTEROL RISK RATIO 4.026 (<5); CREATININE FOR GFR 1.05 MG/DL (0.70-1.30); GLOMERULAR FILTRATION RATE > 60.0 (>42); GLUCOSE, FASTING 111 MG/DL (70-100); HDL CHOLESTEROL 38 MG/DL (>40); NON-HDL-C 115 MG/DL; POTASSIUM SERUM 4.5 MEQ/L (3.5-5.1); SODIUM LEVEL 141 MEQ/L (136-145); TOTAL PROTEIN 7.1 GM/DL (6.4-8.2); TRIGLYCERIDES LEVEL 205 MG/DL (<150)
== END ==
LOC: M SFHCPLAZ 08:08
DX: D69.6 Thrombocytopenia, unspecified (principal); G47.30 Sleep apnea, unspecified; I10 Essential (primary) hypertension; E11.9 Type 2 diabetes mellitus without complications; E78.00 Pure hypercholesterolemia, unspecified
CPT/HCPCS: 83735

== ENCOUNTER → 2018-03-23 | Outpatient (REF) | payer MEDICARE, OTHER ==
[2018-03-23 11:07] LABS: ALT/SGPT 36 U/L (12-78); ANION GAP 9 MEQ/L (8-16); AST/SGOT 26 U/L (7-37); BLOOD UREA NITROGEN 18 MG/DL (7-18); CARBON DIOXIDE LEVEL 27 MEQ/L (21-32); CHLORIDE LEVEL 108 MEQ/L (98-107); CREATININE FOR GFR 0.95 MG/DL (0.70-1.30); GLOMERULAR FILTRATION RATE > 60.0 (>42); GLUCOSE, FASTING 126 MG/DL (70-100); POTASSIUM SERUM 4.3 MEQ/L (3.5-5.1); SODIUM LEVEL 144 MEQ/L (136-145)
[2018-03-23 11:08] LABS: ALBUMIN 4.1 GM/DL (3.2-5.2); ALBUMIN/GLOBULIN RATIO 1.52 (1.00-1.93); ALKALINE PHOSPHATASE 95 U/L (45-117); BILIRUBIN,TOTAL 0.7 MG/DL (0.2-1.0); CHOLESTEROL LEVEL 146 MG/DL (<200); CHOLESTEROL RISK RATIO 3.945 (<5); HDL CHOLESTEROL 37 MG/DL (>40); MAGNESIUM LEVEL 1.9 MG/DL (1.8-2.4); NON-HDL-C 109 MG/DL; TOTAL PROTEIN 6.8 GM/DL (6.4-8.2); TRIGLYCERIDES LEVEL 125 MG/DL (<150)
[2018-03-23 11:11] LABS: ESTIMATED AVERAGE GLUCOSE 126 MG/DL (60-110)
[2018-03-23 13:11] LABS: MALB URINE SIEMENS 39.9 MG/L; MAU/CREAT RATIO 12.9 MCG/MG (0.0-30.0)
== END ==
LOC: M SFHCPLAZ 07:46
DX: E78.00 Pure hypercholesterolemia, unspecified (principal); E11.9 Type 2 diabetes mellitus without complications; I10 Essential (primary) hypertension
CPT/HCPCS: 83735

== ENCOUNTER → 2018-06-28 | Outpatient (REF) | payer MEDICARE, OTHER ==
[2018-06-28 14:34] LABS: HEMATOCRIT 43.9 % (42.0-52.0); HEMOGLOBIN 14.3 g/dl (13.5-17.5); MEAN CORPUSCULAR HEMOGLOBIN 28.1 pg (27.0-33.0); MEAN CORPUSCULAR HGB CONC 32.6 g/dl (32.0-36.5); MEAN CORPUSCULAR VOLUME 86.4 fl (80.0-96.0); PLATELET COUNT, AUTOMATED 177 10^3/uL (150-450); RED BLOOD COUNT 5.08 10^6/uL (4.30-6.10); RED CELL DISTRIBUTION WIDTH 13.1 % (11.5-14.5); WHITE BLOOD COUNT 5.9 10^3/uL (4.0-10.0)
[2018-06-28 14:59] LABS: ALBUMIN 4.1 GM/DL (3.2-5.2); ALBUMIN/GLOBULIN RATIO 1.58 (1.00-1.93); ALKALINE PHOSPHATASE 113 U/L (45-117); ALT/SGPT 43 U/L (12-78); AMYLASE 70 U/L (25-115); ANION GAP 7 MEQ/L (8-16); AST/SGOT 32 U/L (7-37); BILIRUBIN,TOTAL 0.5 MG/DL (0.2-1.0); BLOOD UREA NITROGEN 15 MG/DL (7-18); CARBON DIOXIDE LEVEL 26 MEQ/L (21-32); CHLORIDE LEVEL 109 MEQ/L (98-107); CREATININE FOR GFR 0.89 MG/DL (0.70-1.30); GLOMERULAR FILTRATION RATE > 60.0 (>42); GLUCOSE, FASTING 80 MG/DL (70-100); LIPASE 160 U/L (73-393); POTASSIUM SERUM 4.1 MEQ/L (3.5-5.1); SODIUM LEVEL 142 MEQ/L (136-145); TOTAL PROTEIN 6.7 GM/DL (6.4-8.2)
== END ==
LOC: M SFHCPLAZ 12:12
DX: R19.4 Change in bowel habit (principal)
CPT/HCPCS: 82150

== ENCOUNTER → 2018-08-17 | Outpatient (REF) | payer MEDICARE, OTHER ==
[2018-08-17 11:44] LABS: HEMATOCRIT 43.3 % (42.0-52.0); HEMOGLOBIN 14.2 g/dl (13.5-17.5); MEAN CORPUSCULAR HEMOGLOBIN 28.2 pg (27.0-33.0); MEAN CORPUSCULAR HGB CONC 32.8 g/dl (32.0-36.5); MEAN CORPUSCULAR VOLUME 85.9 fl (80.0-96.0); PLATELET COUNT, AUTOMATED 152 10^3/uL (150-450); RED BLOOD COUNT 5.04 10^6/uL (4.30-6.10); WHITE BLOOD COUNT 5.1 10^3/uL (4.0-10.0)
[2018-08-17 12:15] LABS: ALBUMIN 4.2 GM/DL (3.2-5.2); ALT/SGPT 37 U/L (12-78); BILIRUBIN,TOTAL 0.6 MG/DL (0.2-1.0); BLOOD UREA NITROGEN 18 MG/DL (7-18); CALCIUM LEVEL 8.9 MG/DL (8.8-10.2); CARBON DIOXIDE LEVEL 28 MEQ/L (21-32); CHLORIDE LEVEL 107 MEQ/L (98-107); CHOLESTEROL LEVEL 134 MG/DL (<200); CHOLESTEROL RISK RATIO 3.526 (<5); CREATININE FOR GFR 0.93 MG/DL (0.70-1.30); GLOMERULAR FILTRATION RATE > 60.0 (>42); GLUCOSE, FASTING 112 MG/DL (70-100); HDL CHOLESTEROL 38 MG/DL (>40); LDL CHOLESTEROL 76 MG/DL (<100); NON-HDL-C 96 MG/DL; POTASSIUM SERUM 4.3 MEQ/L (3.5-5.1); SODIUM LEVEL 143 MEQ/L (136-145); TOTAL PROTEIN 6.5 GM/DL (6.4-8.2); TRIGLYCERIDES LEVEL 100 MG/DL (<150)
[2018-08-17 13:40] LABS: HEMOGLOBIN A1c 6.6 %
== END ==
LOC: M SFHCPLAZ 08:00
PROVIDERS: ATTEND Internal Medicine
DX: G47.30 Sleep apnea, unspecified (principal); I10 Essential (primary) hypertension; E11.9 Type 2 diabetes mellitus without complications; E78.00 Pure hypercholesterolemia, unspecified; Z12.5 Encounter for screening for malignant neoplasm of prostate
CPT/HCPCS: 36415; 80053; 80061; 83036; 85027; G0103

== ENCOUNTER 2019-05-10 14:06 | Emergency (ER) | payer MEDICARE, OTHER ==
[~2019-05-10] VITALS: Ht 175.3 cm; Wt 140.9 kg
[2019-05-10] MEDS ORDERED: ATOR80TA59 PO (14:22)
[2019-05-10] MEDS ORDERED: RA B1TAB8 PO (14:22)
[2019-05-10] MEDS ORDERED: BRIM1OPD OU (14:22)
[2019-05-10] MEDS ORDERED: TRAV04OPD PO (14:22)
[2019-05-10] MEDS ORDERED: LISI-538 PO (14:22)
[2019-05-10] MEDS ORDERED: REGL5TAB2 PO (14:22)
[2019-05-10] MEDS ORDERED: CLAR5TAB PO (14:22)
[2019-05-10] MEDS ORDERED: SUCR1SS PO (14:22)
[2019-05-10] MEDS ORDERED: BAYE325T12 PO (14:22)
[2019-05-10] MEDS ORDERED: [UNRECOGNIZED DRUG - CODE] MC (14:22)
[2019-05-10] MEDS ORDERED: NAPR-885 PO (14:22)
[2019-05-10] MEDS ORDERED: GNP1000T11 PO (14:22)
[2019-05-10] MEDS ORDERED: TOPR100T PO (14:22)
[2019-05-10 14:45] LABS: BASO # 0.1 10^3/uL (0.0-0.2); BASO % 0.8 % (0.0-1.0); EOS # 0.4 10^3/uL (0.0-0.5); HEMATOCRIT 44.1 % (42.0-52.0); HEMOGLOBIN 14.4 g/dl (13.5-17.5); LYMPH # 1.5 10^3/uL (1.5-5.0); MEAN CORPUSCULAR HEMOGLOBIN 28.2 pg (27.0-33.0); MEAN CORPUSCULAR HGB CONC 32.7 g/dl (32.0-36.5); MEAN CORPUSCULAR VOLUME 86.5 fl (80.0-96.0); MONO # 0.5 10^3/uL (0.0-0.8); MONO % 8.8 % (0.0-5.0); NEUTROPHILS # 3.6 10^3/uL (1.5-8.5); NEUTROPHILS % 59.2 % (36.0-66.0); PLATELET COUNT, AUTOMATED 180 10^3/uL (150-450); WHITE BLOOD COUNT 6.2 10^3/uL (4.0-10.0)
[2019-05-10 15:10] LABS: ALT/SGPT 39 U/L (12-78); BILIRUBIN,DIRECT 0.2 MG/DL (0.0-0.2); BILIRUBIN,TOTAL 0.7 MG/DL (0.2-1.0); BLOOD UREA NITROGEN 16 MG/DL (7-18); CARBON DIOXIDE LEVEL 29 MEQ/L (21-32); CHLORIDE LEVEL 105 MEQ/L (98-107); CK-MB VALUE MASS 4.7 NG/ML (<3.6); CPK CREATINE PHOSPHOKINASE 406 U/L (39-308); CREATININE FOR GFR 1.06 MG/DL (0.70-1.30); GLOMERULAR FILTRATION RATE > 60.0 (>42); GLUCOSE, FASTING 129 MG/DL (70-100); LIPASE 139 U/L (73-393); MB/CK RELATIVE INDEX 1.16 (< OR =4); POTASSIUM SERUM 4.2 MEQ/L (3.5-5.1); SODIUM LEVEL 140 MEQ/L (136-145); TOTAL PROTEIN 6.9 GM/DL (6.4-8.2); TROPONIN I < 0.02 NG/ML (< 0.10)
--- NOTE | 2019-05-10 15:27 | REP ---
CHEST, PORTABLE: AP portable view of the chest is performed. There appears to be mild bibasilar fibroatelectatic change. No acute infiltrate or pulmonary edema is seen. The heart is not significantly enlarged. There is some mild calcification of the thoracic aorta. Mediastinal silhouette is unchanged. Right hemidiaphragm is mildly elevated as seen on prior study. IMPRESSION: No acute pulmonary disease. Electronically Signed by Paulino Callejas MD 05/11/2019 04:16 P
[2019-05-10 17:27] LABS: CK-MB VALUE MASS 4.4 NG/ML (<3.6); CPK CREATINE PHOSPHOKINASE 383 U/L (39-308); MB/CK RELATIVE INDEX 1.15 (< OR =4); TROPONIN I < 0.02 NG/ML (< 0.10)
[2019-05-10 17:58] VITALS: BP 176/98
--- NOTE | 2019-05-10 20:40 | ECGEPIP ---
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
--- NOTE | 2019-05-10 20:44 | ECGEPIP ---
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
== END 2019-05-10 17:59 | disposition home or self-care (01) ==
LOC: M ED 14:06
DX: K21.9 Gastro-esophageal reflux disease without esophagitis (principal); I45.89 Other specified conduction disorders; I25.10 Atherosclerotic heart disease of native coronary artery without angina pectoris; E11.9 Type 2 diabetes mellitus without complications; I10 Essential (primary) hypertension; E78.5 Hyperlipidemia, unspecified; G47.33 Obstructive sleep apnea (adult) (pediatric); Z95.5 Presence of coronary angioplasty implant and graft; Z82.49 Family history of ischemic heart disease and other diseases of the circulatory system; Z79.82 Long term (current) use of aspirin; Z79.899 Other long term (current) drug therapy; Z88.8 Allergy status to other drugs, medicaments and biological substances

== ENCOUNTER 2019-06-06 06:21 | Emergency (ER) | payer OTHER, MEDICARE ==
[~2019-06-06] VITALS: Ht 175.3 cm; Wt 141.0 kg
[~2019-06-06 06:21] MED LIST: ATOR80TA59 PO; BAYE325T12 PO; BRIM1OPD OU; CLAR5TAB PO; GNP1000T11 PO; LISI-538 PO; NAPR-885 PO; RA B1TAB8 PO; REGL5TAB2 PO; SUCR1SS PO; TOPR100T PO; TRAV04OPD PO; [UNRECOGNIZED DRUG - CODE] MC
[2019-06-06] MEDS ORDERED: LIDO5DIS41 TOP (07:02)
[2019-06-06] MEDS ORDERED: MULTCAP PO (07:02)
[2019-06-06] MEDS ORDERED: ACIP1TAB PO (07:02)
[2019-06-06] MEDS ORDERED: [UNRECOGNIZED DRUG - CODE] MC (07:02)
[2019-06-06] MEDS ORDERED: META0.52 PO (07:02)
[2019-06-06] MEDS ORDERED: [UNRECOGNIZED DRUG - OTHER] (07:02)
[2019-06-06] MEDS ORDERED: CHOL100029 PO (07:02)
[2019-06-06] MEDS ORDERED: MIRA3350 PO (07:02)
[2019-06-06] MEDS ORDERED: FLON1SPR NARES (07:02)
[2019-06-06] MEDS ORDERED: ISOVUE-370 76% 100ML VIAL (Q9967) As Ordered ONE (07:30)
[2019-06-06 07:35] LABS: BASO # 0.1 10^3/uL (0.0-0.2); BASO % 1.1 % (0.0-1.0); EOS # 0.3 10^3/uL (0.0-0.5); EOS % 5.8 % (0.0-3.0); HEMATOCRIT 44.6 % (42.0-52.0); HEMOGLOBIN 14.1 g/dl (13.5-17.5); LYMPH # 1.3 10^3/uL (1.5-5.0); LYMPH % 28.7 % (24.0-44.0); MEAN CORPUSCULAR HEMOGLOBIN 28.1 pg (27.0-33.0); MEAN CORPUSCULAR HGB CONC 31.6 g/dl (32.0-36.5); MONO # 0.4 10^3/uL (0.0-0.8); MONO % 9.5 % (0.0-5.0); NEUTROPHILS # 2.5 10^3/uL (1.5-8.5); NEUTROPHILS % 54.7 % (36.0-66.0); PLATELET COUNT, AUTOMATED 172 10^3/uL (150-450); RED BLOOD COUNT 5.01 10^6/uL (4.30-6.10); WHITE BLOOD COUNT 4.6 10^3/uL (4.0-10.0)
[2019-06-06 07:55] LABS: CK-MB VALUE MASS 4.7 NG/ML (<3.6); CPK CREATINE PHOSPHOKINASE 456 U/L (39-308); MB/CK RELATIVE INDEX 1.03 (< OR =4); TROPONIN I < 0.02 NG/ML (< 0.10)
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
[2019-06-06] MEDS ORDERED: LIDOCAINE 5% (LIDODERM) PATCH TD ONE (09:15)
[2019-06-06 09:47] VITALS: BP 144/71
[2019-06-06] MEDS ORDERED: PRED10TA2 PO (09:57)
[2019-06-06] MEDS ORDERED: LIDO5DIS41 TD (10:04)
--- NOTE | 2019-06-06 16:31 | ECGEPIP ---
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
[2019-06-06] MEDS ORDERED: **NOTE PATIENT COMMENT** MISC XX SCH (21:00)
== END 2019-06-06 10:18 | disposition home or self-care (01) ==
LOC: M ED 06:21
DX: S30.1XXA Contusion of abdominal wall, initial encounter (principal); S39.012A Strain of muscle, fascia and tendon of lower back, initial encounter; R00.1 Bradycardia, unspecified; I45.89 Other specified conduction disorders; V43.52XA Car driver injured in collision with other type car in traffic accident, initial encounter; Y92.9 Unspecified place or not applicable; Y93.9 Activity, unspecified; Y99.9 Unspecified external cause status; I25.10 Atherosclerotic heart disease of native coronary artery without angina pectoris; I10 Essential (primary) hypertension; E78.5 Hyperlipidemia, unspecified; K21.9 Gastro-esophageal reflux disease without esophagitis; E66.01 Morbid (severe) obesity due to excess calories; G47.30 Sleep apnea, unspecified; K76.0 Fatty (change of) liver, not elsewhere classified; H40.9 Unspecified glaucoma; D69.6 Thrombocytopenia, unspecified; Z95.5 Presence of coronary angioplasty implant and graft; K57.30 Diverticulosis of large intestine without perforation or abscess without bleeding; Z96.642 Presence of left artificial hip joint; Z79.82 Long term (current) use of aspirin; Z79.899 Other long term (current) drug therapy; Z88.8 Allergy status to other drugs, medicaments and biological substances
CPT/HCPCS: 36415; 71275; 72131; 74177; 80047; 81001; 82550; 82553; 84484; 85025; 93005; 99284; Q9967

== ENCOUNTER → 2019-08-22 | Outpatient (REF) | payer MEDICARE, OTHER ==
[~2019-08-22] MED LIST changes: +ACIP1TAB PO; +CHOL100029 PO; +FLON1SPR NARES; +LIDO5DIS41 TD; +LIDO5DIS41 TOP; +META0.52 PO; +MIRA3350 PO; +MULTCAP PO; +PRED10TA2 PO; +[UNRECOGNIZED DRUG - OTHER]
[2019-08-22 10:51] LABS: BASO % 0.9 % (0.0-1.0); EOS # 0.4 10^3/uL (0.0-0.5); EOS % 8.9 % (0.0-3.0); HEMATOCRIT 45.9 % (42.0-52.0); HEMOGLOBIN 14.5 g/dl (13.5-17.5); LYMPH # 1.4 10^3/uL (1.5-5.0); LYMPH % 30.3 % (24.0-44.0); MEAN CORPUSCULAR HEMOGLOBIN 27.8 pg (27.0-33.0); MEAN CORPUSCULAR HGB CONC 31.6 g/dl (32.0-36.5); MEAN CORPUSCULAR VOLUME 87.9 fl (80.0-96.0); MONO # 0.5 10^3/uL (0.0-0.8); MONO % 10.2 % (0.0-5.0); NEUTROPHILS # 2.3 10^3/uL (1.5-8.5); NEUTROPHILS % 49.5 % (36.0-66.0); PLATELET COUNT, AUTOMATED 154 10^3/uL (150-450); RED BLOOD COUNT 5.22 10^6/uL (4.30-6.10); WHITE BLOOD COUNT 4.6 10^3/uL (4.0-10.0)
[2019-08-22 10:59] LABS: ALBUMIN 4.3 GM/DL (3.2-5.2); ALT/SGPT 35 U/L (12-78); BILIRUBIN,TOTAL 0.7 MG/DL (0.2-1.0); BLOOD UREA NITROGEN 18 MG/DL (7-18); CALCIUM LEVEL 8.9 MG/DL (8.8-10.2); CARBON DIOXIDE LEVEL 30 MEQ/L (21-32); CHLORIDE LEVEL 108 MEQ/L (98-107); CHOLESTEROL LEVEL 150 MG/DL (<200); CHOLESTEROL RISK RATIO 4.285 (<5); CREATININE FOR GFR 1.09 MG/DL (0.70-1.30); GLOMERULAR FILTRATION RATE > 60.0 (>42); GLUCOSE, FASTING 117 MG/DL (70-100); HDL CHOLESTEROL 35 MG/DL (>40); LDL CHOLESTEROL 84 MG/DL (<100); NON-HDL-C 115 MG/DL; POTASSIUM SERUM 4.7 MEQ/L (3.5-5.1); SODIUM LEVEL 142 MEQ/L (136-145); TOTAL PROTEIN 6.6 GM/DL (6.4-8.2); TRIGLYCERIDES LEVEL 156 MG/DL (<150)
[2019-08-22 11:32] LABS: HEMOGLOBIN A1c 6.1 %
[2019-08-22 14:53] LABS: MALB URINE SIEMENS 29.3 MG/L; MAU/CREAT RATIO 12.5 MCG/MG (0.0-30.0)
== END ==
LOC: M SFHCPLAZ 07:47
PROVIDERS: ATTEND Internal Medicine
DX: D69.6 Thrombocytopenia, unspecified (principal); I10 Essential (primary) hypertension; E11.9 Type 2 diabetes mellitus without complications; E78.00 Pure hypercholesterolemia, unspecified

== ENCOUNTER → 2020-02-10 | Outpatient (REF) | payer MEDICARE, OTHER ==
[2020-02-10 11:22] LABS: ALBUMIN 4.1 GM/DL (3.2-5.2); ALT/SGPT 38 U/L (12-78); BILIRUBIN,TOTAL 0.7 MG/DL (0.2-1.0); BLOOD UREA NITROGEN 19 MG/DL (7-18); CARBON DIOXIDE LEVEL 27 MEQ/L (21-32); CHLORIDE LEVEL 107 MEQ/L (98-107); CREATININE FOR GFR 1.02 MG/DL (0.70-1.30); GLOMERULAR FILTRATION RATE > 60.0 (>42); GLUCOSE, FASTING 131 MG/DL (70-100); MAGNESIUM LEVEL 2.1 MG/DL (1.8-2.4); POTASSIUM SERUM 4.6 MEQ/L (3.5-5.1); SODIUM LEVEL 140 MEQ/L (136-145); TOTAL PROTEIN 6.9 GM/DL (6.4-8.2)
[2020-02-10 11:31] LABS: HEPATITIS B SURFACE ANTIBODY NEGATIVE (POSITIVE)
[2020-02-10 11:34] LABS: HEMOGLOBIN A1c 6.7 %
[2020-02-10 11:41] LABS: HEPATITIS B SURFACE ANTIGEN NEGATIVE (NEGATIVE)
== END ==
LOC: M PLALAB 08:01
PROVIDERS: ATTEND Internal Medicine
DX: I10 Essential (primary) hypertension (principal); K76.0 Fatty (change of) liver, not elsewhere classified; E11.9 Type 2 diabetes mellitus without complications
CPT/HCPCS: 36415; 80053; 83036; 83735; 86706; 87340; G0472

== ENCOUNTER → 2020-06-21 | Outpatient (REF) | payer MEDICARE, OTHER ==
[2020-06-21 16:17] LABS: BASO % 0.5 % (0.0-1.0); EOS # 0.3 10^3/uL (0.0-0.5); EOS % 3.5 % (0.0-3.0); HEMATOCRIT 45.6 % (42.0-52.0); HEMOGLOBIN 14.4 g/dl (13.5-17.5); LYMPH # 2.4 10^3/uL (1.5-5.0); MEAN CORPUSCULAR HEMOGLOBIN 27.3 pg (27.0-33.0); MEAN CORPUSCULAR HGB CONC 31.6 g/dl (32.0-36.5); MEAN CORPUSCULAR VOLUME 86.5 fl (80.0-96.0); MONO # 0.8 10^3/uL (0.0-0.8); MONO % 9.4 % (0.0-5.0); NEUTROPHILS # 4.9 10^3/uL (1.5-8.5); NEUTROPHILS % 58.1 % (36.0-66.0); PLATELET COUNT, AUTOMATED 195 10^3/uL (150-450); RED BLOOD COUNT 5.27 10^6/uL (4.30-6.10); WHITE BLOOD COUNT 8.4 10^3/uL (4.0-10.0)
[2020-06-21 16:33] LABS: ALBUMIN 4.4 GM/DL (3.2-5.2); ALT/SGPT 37 U/L (12-78); BILIRUBIN,TOTAL 0.6 MG/DL (0.2-1.0); BLOOD UREA NITROGEN 19 MG/DL (7-18); CALCIUM LEVEL 9.1 MG/DL (8.8-10.2); CARBON DIOXIDE LEVEL 29 MEQ/L (21-32); CHLORIDE LEVEL 108 MEQ/L (98-107); GLOMERULAR FILTRATION RATE > 60.0 (>42); GLUCOSE, FASTING 105 MG/DL (70-100); LIPASE 107 U/L (73-393); POTASSIUM SERUM 4.6 MEQ/L (3.5-5.1); SODIUM LEVEL 142 MEQ/L (136-145); TOTAL PROTEIN 7.4 GM/DL (6.4-8.2)
== END ==
LOC: M SFHCPLAZ 15:13
PROVIDERS: ATTEND Physician Assistant
DX: R10.32 Left lower quadrant pain (principal); Z87.19 Personal history of other diseases of the digestive system

== ENCOUNTER → 2020-06-22 | Outpatient (CLI) | payer MEDICARE, OTHER ==
[~2020-06-22] MED LIST changes: +GASTROGRAFIN SOLUTION 30ML (Q9963) As Ordered ONE; +ISOVUE-370 76% 100ML VIAL As Ordered ONE
--- NOTE | 2020-06-22 10:13 | REP ---
INDICATION: LLQ ABD PAIN, DIVERTICULITIS R/O COMPARISON: 06/06/2019. TECHNIQUE: CT Scan of the abdomen and pelvis was performed with intravenous administration of 100 cc of Isovue 370, and oral contrast. FINDINGS: Lung bases: Unremarkable. Liver: There is a small cyst in the anterior right lobe of the liver and another more centrally adjacent to the inferior vena cava, both stable. Gallbladder: Unremarkable. Spleen: Normal. Adrenals: Normal. Pancreas: Normal. Kidneys: Normal. Small and large bowel: There is sigmoid and left colonic diverticulosis without compelling evidence for acute diverticulitis. There is no free air or obstruction. Free fluid: None. Abdominal aorta: No aneurysm or dissection. Adenopathy: None. Appendix: Prior appendectomy. Osseous structures: There are degenerative changes of the spine without compression deformity. Metallic left hip prosthesis is noted. Pelvis: No mass. A left inguinal hernia contains noninflamed fat. IMPRESSION: There is sigmoid and left colonic diverticulosis without compelling evidence for acute diverticulitis. There is no free air or obstruction. <Electronically signed by Paulino Callejas > 06/22/20 [id number]
== END ==
LOC: M RAD 07:06
PROVIDERS: ATTEND Physician Assistant
DX: R10.32 Left lower quadrant pain (principal); K40.90 Unilateral inguinal hernia, without obstruction or gangrene, not specified as recurrent; Z96.642 Presence of left artificial hip joint; K57.30 Diverticulosis of large intestine without perforation or abscess without bleeding
CPT/HCPCS: 74177; Q9963; Q9967

== ENCOUNTER 2020-07-07 01:28 | Emergency (ER) | payer MEDICARE, OTHER ==
[~2020-07-07] VITALS: Ht 172.7 cm; Wt 140.9 kg
[~2020-07-07 01:28] MED LIST changes: -GASTROGRAFIN SOLUTION 30ML (Q9963) As Ordered ONE; -ISOVUE-370 76% 100ML VIAL As Ordered ONE
[2020-07-07] MEDS ORDERED: KETOROLAC 30 MG/ML 1ML VIAL IV ONE (02:30)
[2020-07-07 02:43] LABS: BASO % 0.9 % (0.0-1.0); EOS # 0.3 10^3/uL (0.0-0.5); EOS % 6.5 % (0.0-3.0); HEMATOCRIT 43.1 % (42.0-52.0); HEMOGLOBIN 13.5 g/dl (13.5-17.5); LYMPH # 1.4 10^3/uL (1.5-5.0); LYMPH % 29.8 % (24.0-44.0); MEAN CORPUSCULAR HEMOGLOBIN 26.9 pg (27.0-33.0); MEAN CORPUSCULAR HGB CONC 31.3 g/dl (32.0-36.5); MONO # 0.6 10^3/uL (0.0-0.8); MONO % 13.7 % (0.0-5.0); NEUTROPHILS # 2.2 10^3/uL (1.5-8.5); NEUTROPHILS % 48.9 % (36.0-66.0); PLATELET COUNT, AUTOMATED 141 10^3/uL (150-450); RED BLOOD COUNT 5.01 10^6/uL (4.30-6.10); WHITE BLOOD COUNT 4.6 10^3/uL (4.0-10.0)
--- NOTE | 2020-07-07 03:21 | REPVR ---
PROCEDURE INFORMATION: Exam: XR Chest, 1 View Exam date and time: 07/07/2020 2:29 AM Age: 75 years old Clinical indication: Other: Cp; Additional info: Chest pain TECHNIQUE: Imaging protocol: XR of the chest Views: 1 view. COMPARISON: CR PORTABLE CHEST X-RAY 05/10/2019 2:26 PM FINDINGS: Lungs: Minimal right base atelectasis/scarring. No consolidation. Pleural space: Unremarkable. No pleural effusion. No pneumothorax. Heart/Mediastinum: Cardiomegaly. Vasculature: Mild atherosclerosis. Diaphragm: Eventration of right hemidiaphragm. Bones/joints: Demineralization of the bones with degenerative changes. IMPRESSION: Minimal right base atelectasis/scarring. No consolidation. Electronically signed by: Nohemy Forman On 07/07/2020 03:21:10 AM
[2020-07-07 03:27] LABS: BLOOD UREA NITROGEN 19 MG/DL (7-18); CALCIUM LEVEL 8.5 MG/DL (8.8-10.2); CARBON DIOXIDE LEVEL 26 MEQ/L (21-32); CHLORIDE LEVEL 107 MEQ/L (98-107); CK-MB VALUE MASS 5.1 NG/ML (<3.6); CPK CREATINE PHOSPHOKINASE 449 U/L (39-308); CREATININE FOR GFR 0.91 MG/DL (0.70-1.30); GLOMERULAR FILTRATION RATE > 60.0 (>42); GLUCOSE, FASTING 137 MG/DL (70-100); MB/CK RELATIVE INDEX 1.14 (< OR =4); POTASSIUM SERUM 3.8 MEQ/L (3.5-5.1); SODIUM LEVEL 141 MEQ/L (136-145); TROPONIN I < 0.02 NG/ML (< 0.10)
[2020-07-07] MEDS ORDERED: GI COCKTAIL 50ML BTL(HYOSCYAMINE/MAALOX/LIDOCAINE VISCOUS)(1:3:1) PO ONE (03:45)
[2020-07-07] MEDS ORDERED: NORV5TAB PO (04:29)
[2020-07-07 04:30] VITALS: BP 190/97
[2020-07-07] MEDS ORDERED: amLODIPine 5 MG TAB PO ONE (04:30)
[2020-07-07 04:37] VITALS: BP 190/97
--- NOTE | 2020-07-07 16:47 | ECGEPIP ---
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
== END 2020-07-07 04:45 | disposition home or self-care (01) ==
LOC: M ED 01:28
DX: I10 Essential (primary) hypertension (principal); R07.89 Other chest pain; R00.1 Bradycardia, unspecified; R94.31 Abnormal electrocardiogram [ECG] [EKG]; I25.10 Atherosclerotic heart disease of native coronary artery without angina pectoris; G89.29 Other chronic pain; M54.9 Dorsalgia, unspecified; K44.9 Diaphragmatic hernia without obstruction or gangrene; Z98.61 Coronary angioplasty status; Z79.82 Long term (current) use of aspirin; Z79.899 Other long term (current) drug therapy; Z88.8 Allergy status to other drugs, medicaments and biological substances
CPT/HCPCS: 71045; 80048; 82550; 82553; 84484; 85025; 93005; 93041; 94760; 96374; 99285; J1885

== ENCOUNTER → 2020-07-25 | Outpatient (REF) | payer MEDICARE, OTHER ==
[~2020-07-25] MED LIST changes: +NORV5TAB PO
[2020-07-25 15:44] LABS: ALBUMIN 4.3 GM/DL (3.2-5.2); ALT/SGPT 38 U/L (12-78); BILIRUBIN,TOTAL 0.7 MG/DL (0.2-1.0); BLOOD UREA NITROGEN 21 MG/DL (7-18); CALCIUM LEVEL 9.2 MG/DL (8.8-10.2); CARBON DIOXIDE LEVEL 29 MEQ/L (21-32); CHLORIDE LEVEL 105 MEQ/L (98-107); CHOLESTEROL LEVEL 163 MG/DL (<200); CHOLESTEROL RISK RATIO 3.704 (<5); CREATININE FOR GFR 1.01 MG/DL (0.70-1.30); GLOMERULAR FILTRATION RATE > 60.0 (>42); GLUCOSE, FASTING 104 MG/DL (70-100); HDL CHOLESTEROL 44 MG/DL (>40); LDL CHOLESTEROL 101 MG/DL (<100); MAGNESIUM LEVEL 1.9 MG/DL (1.8-2.4); NON-HDL-C 119 MG/DL; POTASSIUM SERUM 4.6 MEQ/L (3.5-5.1); SODIUM LEVEL 140 MEQ/L (136-145); TOTAL PROTEIN 7.1 GM/DL (6.4-8.2); TRIGLYCERIDES LEVEL 91 MG/DL (<150)
[2020-07-25 15:52] LABS: HEMOGLOBIN A1c 6.4 %
== END ==
LOC: M PLALAB 13:53
PROVIDERS: ATTEND Internal Medicine
DX: E78.00 Pure hypercholesterolemia, unspecified (principal); I10 Essential (primary) hypertension; E11.9 Type 2 diabetes mellitus without complications; Z12.5 Encounter for screening for malignant neoplasm of prostate
CPT/HCPCS: 36415; 80053; 80061; 82043; 83036; 83735; G0103; G0463

== ENCOUNTER → 2020-10-12 | Outpatient (REF) | payer MEDICARE, OTHER ==
[~2020-10-12] MED LIST changes: -LISI-538 PO; +LISI20TA33 PO
== END ==
LOC: M PLALAB 08:02
PROVIDERS: ATTEND Internal Medicine
DX: R97.20 Elevated prostate specific antigen [PSA] (principal)

== ENCOUNTER → 2021-01-01 | Outpatient (REF) | payer MEDICARE, OTHER ==
[2021-01-01 15:34] LABS: APPEARANCE, URINE CLEAR (CLEAR); BACTERIA, URINE AUTO NEGATIVE (NEGATIVE); BILIRUBIN, URINE AUTO NEGATIVE (NEGATIVE); BLOOD, URINE BLOOD NEGATIVE (NEGATIVE); COLOR, URINE YELLOW (YELLOW); GLUCOSE, URINE (UA) AUTO NEGATIVE (NEGATIVE); KETONE, URINE AUTO NEGATIVE (NEGATIVE); LEUKOCYTE ESTERASE, URINE AUTO NEGATIVE (NEGATIVE); NITRITE, URINE AUTO NEGATIVE (NEGATIVE); PROTEIN, URINE AUTO NEGATIVE (NEGATIVE); RBC, URINE AUTO 0 /HPF (0-3); SPECIFIC GRAVITY URINE AUTO 1.012 (1.002-1.035); SQUAMOUS EPITHELIAL CELL UR AU 0 /HPF (0-6); UROBILINOGEN, URINE AUTO 0.2 mg/dL (0.0-2.0); WBC, URINE AUTO 0 /HPF (0-3)
== END ==
LOC: M SFHCPLAZ 13:12
PROVIDERS: ATTEND Physician Assistant
DX: R30.0 Dysuria (principal)
CPT/HCPCS: 81001; 81002; 87088; 87186; G0463

== ENCOUNTER → 2021-02-11 | Outpatient (CLI) | payer MEDICARE, OTHER ==
[2021-02-11 11:31] LABS: BASO # 0.1 10^3/uL (0.0-0.2); BASO % 1.1 % (0.0-1.0); EOS # 0.5 10^3/uL (0.0-0.5); EOS % 8.6 % (0.0-3.0); HEMOGLOBIN 13.9 g/dl (13.5-17.5); LYMPH # 1.5 10^3/uL (1.5-5.0); LYMPH % 26.8 % (24.0-44.0); MEAN CORPUSCULAR HEMOGLOBIN 28.3 pg (27.0-33.0); MEAN CORPUSCULAR HGB CONC 32.3 g/dl (32.0-36.5); MEAN CORPUSCULAR VOLUME 87.6 fl (80.0-96.0); MONO # 0.5 10^3/uL (0.0-0.8); MONO % 9.7 % (2.0-8.0); NEUTROPHILS # 2.9 10^3/uL (1.5-8.5); NEUTROPHILS % 53.4 % (36.0-66.0); PLATELET COUNT, AUTOMATED 163 10^3/uL (150-450); RED BLOOD COUNT 4.91 10^6/uL (4.30-6.10); WHITE BLOOD COUNT 5.5 10^3/uL (4.0-10.0)
[2021-02-11 11:49] LABS: HEMOGLOBIN A1c 6.5 %
[2021-02-11 12:15] LABS: ALBUMIN 4.2 GM/DL (3.2-5.2); ALT/SGPT 37 U/L (12-78); BILIRUBIN,TOTAL 0.7 MG/DL (0.2-1.0); BLOOD UREA NITROGEN 21 MG/DL (7-18); CALCIUM LEVEL 9.4 MG/DL (8.8-10.2); CARBON DIOXIDE LEVEL 29 MEQ/L (21-32); CHLORIDE LEVEL 108 MEQ/L (98-107); CHOLESTEROL LEVEL 161 MG/DL (<200); CHOLESTEROL RISK RATIO 3.926 (<5); CREATININE FOR GFR 1.06 MG/DL (0.70-1.30); GLOMERULAR FILTRATION RATE > 60.0 (>42); GLUCOSE, FASTING 141 MG/DL (70-100); HDL CHOLESTEROL 41 MG/DL (>40); LDL CHOLESTEROL 99 MG/DL (<100); NON-HDL-C 120 MG/DL; POTASSIUM SERUM 4.8 MEQ/L (3.5-5.1); PROSTATIC SPECIFIC AG MONITOR 4.61 NG/ML (< 4.00); SODIUM LEVEL 142 MEQ/L (136-145); TOTAL PROTEIN 6.8 GM/DL (6.4-8.2); TRIGLYCERIDES LEVEL 107 MG/DL (<150)
== END ==
LOC: M PLALAB 08:01
PROVIDERS: ATTEND Internal Medicine
DX: R97.20 Elevated prostate specific antigen [PSA] (principal); E78.00 Pure hypercholesterolemia, unspecified

== ENCOUNTER → 2021-04-23 | Outpatient (CLI) | payer MEDICARE, OTHER ==
--- NOTE | 2021-04-23 13:35 | REP ---
INDICATION: LACERATION W/O FOREIGN BODY, RIGHT LOWER LEG, INIT ENCNTR COMPARISON: None. TECHNIQUE: Four views right ankle. FINDINGS: No acute fracture or dislocation is seen. No radiopaque foreign body is seen in the soft tissues. There is an old healed fracture of the distal fibula. There is fusion of the distal tibia and fibula with a transverse screw present at that location. There is fusion of the tibiotalar joint. There is heterogeneous sclerosis at the obliterated tibiotalar joint. There is moderate narrowing of the talocalcaneal joint with diffuse subchondral sclerosis. Moderate arthritic change is noted at the talonavicular joint with moderate narrowing, subchondral sclerosis and cystic change of that joint. An oval calcific body at the dorsal aspect of the talonavicular joint measures 19 x 10 mm. IMPRESSION: Ankle fusion as discussed above with moderate arthritic change at the talocalcaneal and talonavicular joints. No acute findings. <Electronically signed by Paulino Callejas > 04/23/21 [id number]
== END ==
LOC: M PLAIMG 12:11
PROVIDERS: ATTEND Nurse Practitioner Adult Health
DX: S81.811A Laceration without foreign body, right lower leg, initial encounter (principal); Y92.9 Unspecified place or not applicable; Y93.9 Activity, unspecified; Y99.9 Unspecified external cause status

== ENCOUNTER → 2021-08-21 | Outpatient (CLI) | payer MEDICARE, OTHER ==
[2021-08-21 12:45] LABS: HEMOGLOBIN A1c 6.5 %
[2021-08-21 13:38] LABS: ALBUMIN 4.2 GM/DL (3.2-5.2); ALT/SGPT 44 U/L (12-78); BILIRUBIN,TOTAL 0.7 MG/DL (0.2-1.0); BLOOD UREA NITROGEN 18 MG/DL (7-18); CALCIUM LEVEL 9.3 MG/DL (8.8-10.2); CARBON DIOXIDE LEVEL 27 MEQ/L (21-32); CHLORIDE LEVEL 108 MEQ/L (98-107); CREATININE FOR GFR 1.18 MG/DL (0.70-1.30); GLOMERULAR FILTRATION RATE > 60.0 (>42); GLUCOSE, FASTING 140 MG/DL (70-100); MAGNESIUM LEVEL 2.3 MG/DL (1.8-2.4); POTASSIUM SERUM 4.7 MEQ/L (3.5-5.1); SODIUM LEVEL 141 MEQ/L (136-145); TOTAL PROTEIN 6.7 GM/DL (6.4-8.2)
[2021-08-21 15:15] LABS: MALB URINE SIEMENS 55.4 MG/L; MAU/CREAT RATIO 23.9 MCG/MG (0.0-30.0)
== END ==
LOC: M PLALAB 07:53
PROVIDERS: ATTEND Internal Medicine
DX: I10 Essential (primary) hypertension (principal); E11.9 Type 2 diabetes mellitus without complications; Z12.5 Encounter for screening for malignant neoplasm of prostate
CPT/HCPCS: 36415; 80053; 82043; 83036; 83735; G0103

== ENCOUNTER → 2022-01-14 | Outpatient (CLI) | payer MEDICARE, OTHER ==
[2022-01-14 11:10] LABS: CHOLESTEROL RISK RATIO 3.621 (<5); PROSTATIC SPECIFIC AG MONITOR 6.56 NG/ML (< 4.00)
== END ==
LOC: M PLALAB 08:57
PROVIDERS: ATTEND Internal Medicine
DX: E78.00 Pure hypercholesterolemia, unspecified (principal); E11.9 Type 2 diabetes mellitus without complications; R97.20 Elevated prostate specific antigen [PSA]

== ENCOUNTER → 2022-01-14 | Outpatient (REF) | payer MEDICARE, OTHER | LOC: M SFHCPLAZ 08:18 | PROVIDERS: ATTEND Internal Medicine | DX: E78.00 Pure hypercholesterolemia, unspecified (principal); E11.9 Type 2 diabetes mellitus without complications; R97.20 Elevated prostate specific antigen [PSA] ==

== ENCOUNTER → 2022-03-03 | Outpatient (REF) | payer MEDICARE, OTHER ==
[~2022-03-03] MED LIST changes: -CLAR5TAB PO; +DESL5TAB28 PO
== END ==
LOC: M LAB REF 15:57
PROVIDERS: ATTEND Internal Medicine
DX: D51.9 Vitamin B12 deficiency anemia, unspecified (principal)

== ENCOUNTER 2023-09-22 08:16 | Emergency (ER) | payer MEDICARE, OTHER ==
[~2023-09-22] VITALS: Ht 172.7 cm; Wt 128.9 kg
[2023-09-22 09:22] LABS: EOS # 0.2 10^3/uL (0.0-0.5); EOS % 4.5 % (0.0-3.0); HEMATOCRIT 40.1 % (42.0-52.0); HEMOGLOBIN 13.4 g/dl (13.5-17.5); LYMPH # 1.1 10^3/uL (1.5-5.0); LYMPH % 26.4 % (24.0-44.0); MEAN CORPUSCULAR HEMOGLOBIN 30.9 pg (27.0-33.0); MEAN CORPUSCULAR HGB CONC 33.4 g/dl (32.0-36.5); MEAN CORPUSCULAR VOLUME 92.6 fl (80.0-96.0); MONO # 0.4 10^3/uL (0.0-0.8); NEUTROPHILS # 2.4 10^3/uL (1.5-8.5); NEUTROPHILS % 59.1 % (36.0-66.0); PLATELET COUNT, AUTOMATED 159 10^3/uL (150-450); RED BLOOD COUNT 4.33 10^6/uL (4.30-6.10)
[2023-09-22] MEDS: ANUSOL HC CREAM 30GM TOP ONE (09:24)
[2023-09-22 09:34] LABS: INR 0.97; PROTHROMBIN TIME 12.7 SECONDS (12.5-14.5)
[2023-09-22 09:35] LABS: PARTIAL THROMBOPLASTIN TIME 31.2 SECONDS (24.8-34.2)
[2023-09-22 09:56] LABS: RSV AMPLIFICATION NEGATIVE (NEGATIVE)
[2023-09-22 09:56] LABS: ALKALINE PHOSPHATASE 82 U/L (46-116); ALT/SGPT 33 U/L (7.0-40); AST/SGOT 30 U/L (<34); BILIRUBIN,DIRECT 0.2 MG/DL (<0.4); BILIRUBIN,TOTAL 0.7 MG/DL (0.3-1.2); BLOOD UREA NITROGEN 18 MG/DL (9-23); CALCIUM LEVEL 8.7 MG/DL (8.3-10.6); CARBON DIOXIDE LEVEL 24 MMOL/L (20-31); CHLORIDE LEVEL 110 MMOL/L (98-107); CREATININE FOR GFR 0.83 MG/DL (0.70-1.30); GLOMERULAR FILTRATION RATE > 60.0 (>42); GLUCOSE, FASTING 115 MG/DL (74-106); POTASSIUM SERUM 4.4 MMOL/L (3.5-5.1); SODIUM LEVEL 141 MMOL/L (136-145); TOTAL PROTEIN 6.5 G/DL (5.7-8.2)
[2023-09-22] MEDS: PREPARATION H OINTMENT (HEMORRHOID) TOP ONE (10:58)
[2023-09-22] MEDS ORDERED: EQL50TAB2 PO (12:50)
[2023-09-22] MEDS ORDERED: GLUC10002 PO (12:50)
[2023-09-22] MEDS ORDERED: ASPI81TA27 PO (12:50)
[2023-09-22] MEDS ORDERED: RABE1TAB4 PO (12:50)
[2023-09-22] MEDS ORDERED: BRIM5DRO15 OU (12:50)
[2023-09-22] MEDS ORDERED: D200CAP PO (12:50)
[2023-09-22] MEDS ORDERED: METO1TAB33 PO (12:50)
[2023-09-22] MEDS ORDERED: TRUL0.5I SQ (12:51)
[2023-09-22] MEDS ORDERED: META28.32 PO (12:51)
[2023-09-22] MEDS ORDERED: MULTTAB61 PO (12:51)
[2023-09-22] MEDS ORDERED: TRAM50TA2 PO (12:51)
[2023-09-22] MEDS ORDERED: SUCR1TAB56 PO (12:51)
[2023-09-22] MEDS ORDERED: ZINC220CA PO (12:51)
[2023-09-22] MEDS ORDERED: BRIL90TA PO (12:51)
[2023-09-22] MEDS ORDERED: NITR0.4S14 SL (12:51)
[2023-09-22] MEDS ORDERED: AMLO1TAB24 PO (12:51)
[2023-09-22] MEDS ORDERED: TRAV2.5D OU (12:51)
[2023-09-22] MEDS ORDERED: FLUTISP NARES (12:51)
[2023-09-22] MEDS ORDERED: LACT1TAB5 PO (12:51)
[2023-09-22] MEDS ORDERED: HOME MED LIST COMPLETE! XX SCH (12:55)
[2023-09-22] MEDS ORDERED: PREP1SUP PR (14:48)
[2023-09-22 15:00] VITALS: BP 165/89; TEMP 97.7; O2SAT 97
== END 2023-09-22 15:02 | disposition home or self-care (01) ==
LOC: M ED 08:16
DX: K64.8 Other hemorrhoids (principal); E11.9 Type 2 diabetes mellitus without complications; I10 Essential (primary) hypertension; K21.9 Gastro-esophageal reflux disease without esophagitis; Z86.79 Personal history of other diseases of the circulatory system; Z87.891 Personal history of nicotine dependence; Z88.8 Allergy status to other drugs, medicaments and biological substances; Z79.82 Long term (current) use of aspirin; Z79.02 Long term (current) use of antithrombotics/antiplatelets; Z79.811 Long term (current) use of aromatase inhibitors; Z79.810 Long term (current) use of selective estrogen receptor modulators (SERMs); Z79.899 Other long term (current) drug therapy

== ENCOUNTER → 2024-01-14 | Outpatient (REF) | payer MEDICARE, OTHER ==
[~2024-01-14] MED LIST changes: +AMLO1TAB24 PO; +ASPI81TA27 PO; +BRIL90TA PO; +BRIM5DRO15 OU; +D200CAP PO; +EQL50TAB2 PO; +FLUTISP NARES; +GLUC10002 PO; +LACT1TAB5 PO; +META28.32 PO; +METO1TAB33 PO; +MULTTAB61 PO; +NITR0.4S14 SL; +PREP1SUP PR; +RABE1TAB4 PO; +SUCR1TAB56 PO; +TRAM50TA2 PO; +TRAV2.5D OU; +TRUL0.5I SQ; +ZINC220CA PO
== END ==
LOC: M LAB REF 11:24
PROVIDERS: ATTEND Internal Medicine
DX: R97.0 Elevated carcinoembryonic antigen [CEA] (principal)

== ENCOUNTER → 2024-03-15 | Outpatient (REF) | payer MEDICARE, OTHER ==
[~2024-03-15] MED LIST changes: -ACIP1TAB PO; +RABE20TA88 PO
== END ==
LOC: M LAB REF 13:24
PROVIDERS: ATTEND Internal Medicine
DX: R51.9 Headache, unspecified (principal)

== ENCOUNTER → 2024-03-24 | Outpatient (REF) | payer MEDICARE, OTHER | LOC: M LAB REF 16:34 | PROVIDERS: ATTEND Internal Medicine | DX: N18.9 Chronic kidney disease, unspecified (principal); N39.0 Urinary tract infection, site not specified ==

== ENCOUNTER → 2025-02-16 | Outpatient (CLI) | payer MEDICARE, OTHER ==
[~2025-02-16] MED LIST changes: -BAYE325T12 PO; +BAYE325T2 PO; -BRIM1OPD OU; +BRIM5DRO25 OU; -DESL5TAB28 PO; +DESL5TAB30 PO; -EQL50TAB2 PO; +LIDO1ADH93 TD; +LIDO1ADH93 TOP; -LIDO5DIS41 TD; -LIDO5DIS41 TOP; -RABE1TAB4 PO; +RABE1TAB5 PO; +VITA1TAB82 PO
== END ==
LOC: M EKG 07:49
PROVIDERS: ATTEND Physician Assistant
DX: I44.1 Atrioventricular block, second degree (principal)